=== PATIENT | female | born 1990 | race African-American/Black ===

== ENCOUNTER 2016-06-08 16:27 | Outpatient (CLI) | payer OTHER ==
--- NOTE | 2016-06-08 17:24 | Non Stress Test Report ---
Non Stress Test Datetime Report Generated by CPN: 06/08/2016 17:24 DEMOGRAPHIC EGA NST: 34.4 INDICATION Indication for Study: Ordered by Provider; Other Indication for Study (NST) Other: GDM MONITORING Monitor Explained: Monitor Explained; Test Explained; Patient Verbalized Understanding Time on Monitor: 06/08/2016 16:37 Time off Monitor: 06/08/2016 17:23 NST Duration: 46 NST INTERVENTIONS NST Interventions: PO Hydration Physician Notified NST: Dr. Hunter BABY A: [id number] BABY A Movement : Present Contraction Frequency : 0 FHR Baseline : 135 Accelerations : 15X15 Decelerations : None Variability : Moderate 6-25bpm NST Review: Meets Criteria for Reactive NST NST Review and Verified By : MICHELLE Tilley Results: Reactive NST REPORT Report Trigger: Send Report
== END 2016-06-08 17:27 | disposition home or self-care (01) ==
LOC: LC 16:27
PROVIDERS: ATTEND Obstetrics & Gynecology
PROC: 4A1HXCZ Monitoring of Products of Conception, Cardiac Rate, External Approach (ICD-10-PCS; principal; 2016-06-08)
DX: O24.419 Gestational diabetes mellitus in pregnancy, unspecified control (principal); Z3A.34 34 weeks gestation of pregnancy
CPT/HCPCS: 59025

== ENCOUNTER 2016-07-11 20:16 | Inpatient (IN) | payer OTHER ==
[2016-07-11] MEDS ORDERED: RINGERS SOLUTION,LACTATED 300 ML IV ONE (20:36)
[2016-07-11] MEDS ORDERED: MAG HYDROX/AL HYDROX/SIMETH SUSP 30 ML UDCUP PO PRN (20:36)
[2016-07-11] MEDS ORDERED: ZOLPIDEM TARTRATE 5 MG TABLET PO PRN (20:36)
[2016-07-11] MEDS ORDERED: DINOPROSTONE 10 MG VAGINAL INSERT.SR PV ONE (20:36)
[2016-07-11] MEDS ORDERED: OXYTOCIN/NORMAL SALINE 1,000 ML IV PRN (20:36)
[2016-07-11] MEDS ORDERED: ACETAMINOPHEN 325 MG TABLET PO PRN (20:36)
[2016-07-11 21:04] LABS: ABSOLUTE EOSINOPHILS # (AUTO) 0.1 10^3/uL (0.0-0.6); ABSOLUTE LYMPHOCYTES (AUTO) 2.1 10^3/uL (0.5-4.7); ABSOLUTE MONOCYTES (AUTO) 0.5 10^3/uL (0.1-1.4); ABSOLUTE NEUT (AUTO) 8.2 10^3/uL (1.7-8.2); BASOPHILS % (AUTO) 0.4 % (0-2); EOSINOPHILS % (AUTO) 0.8 % (0-6); HEMATOCRIT 32.4 % (36.0-47.0); HEMOGLOBIN 11.1 g/dL (12.0-15.5); HGB HCT DIFFERENCE 0.9; LYMPHOCYTES % (AUTO) 19.1 % (13-45); MEAN CORPUSCULAR HEMOGLOBIN 30.4 pg (27.0-33.4); MEAN CORPUSCULAR HGB CONC 34.3 g/dL (32.0-36.0); MEAN CORPUSCULAR VOLUME 89 fl (80-97); MONOCYTES % (AUTO) 4.9 % (3-13); RED BLOOD COUNT 3.65 10^6/uL (3.72-5.28); RED CELL DISTRIBUTION WIDTH 12.3 % (11.5-14.0); SEGMENTED NEUTROPHILS % (AUTO) 74.8 % (42-78); WHITE BLOOD COUNT 10.9 10^3/uL (4.0-10.5)
[2016-07-11 21:11] LABS: APPEARANCE,URINE SLIGHTLY-CLOUDY; BILIRUBIN,URINE NEGATIVE (NEGATIVE); GLUCOSE, URINE NEGATIVE (NEGATIVE); KETONES,URINE NEGATIVE (NEGATIVE); LEUKOCYTE ESTERASE,URINE MODERATE (NEGATIVE); NITRITE,URINE NEGATIVE (NEGATIVE); PROTEIN,URINE NEGATIVE (NEGATIVE); URINE SPECIFIC GRAVITY 1.011; UROBILINOGEN,URINE NEGATIVE mg/dL (<2.0)
[2016-07-11] MEDS ORDERED: DINOPROSTONE 10 MG VAGINAL INSERT.SR ONE (21:21)
[2016-07-11 21:46] LABS: URINE BARBITURATES SCREEN NEGATIVE; URINE METHADONE SCREEN NEGATIVE; URINE OPIATES LOW NEGATIVE; URINE PHENCYCLIDINE SCREEN NEGATIVE
--- NOTE | 2016-07-11 22:00 | L&D Flow Sheet ---
LD Flowsheet Datetime Report Generated by CPN: 07/11/2016 22:00 Datetime: 07/11/2016 21:30 Uterine Activity Monitor Mode: External; Palpation (Crystal Rosa, RN) Frequency (min): Irritability (Crystal Rosa, RN) Resting Tone (Palpate): Relaxed (Crystal Rosa, RN) Assessment A Monitor Mode: External US (Crystal [place], RN) FHR Baseline Rate : 130 (Crystal [place], RN) Variability: Moderate 6-25 bpm (Crystal [place], RN) Accelerations: 15X15 (Crystal Frankfort, RN) Decelerations: None (Crystal Frankfort, RN) Patient Position/Activity: Left Lateral (Crystal Frank[place], RN) Datetime: 07/11/2016 21:28 Vaginal Exam Dilatation (cm): 1.0 (Crystal Rosa, RN) Effacement (%): 25 (Crystal Frankfort, RN) Station: -3 (Crystal Rosa, RN) Exam by: Manny Lee RN (Crystal Frankfort, RN) Membrane Status: Intact (Crystal Frankfort, RN) Vaginal Bleeding: None (Crystal Rosa, RN) Cervix, Consistency: Firm (Crystal Frankfort, RN) Cervix, Position: Posterior (Crystal Frankfort, RN) Medications Cervical Ripening Agents: Cervidil (Crystal Rosa, RN) Datetime: 07/11/2016 21:23 I/O Interventions: Up to BR (Crystal Rosa, RN) Datetime: 07/11/2016 21:10 Vital Signs NBP Sys/Azeb/Mean (mmHg): 112 (QS system process) : 57 (QS system process) : 79 (QS system process) Pulse: 80 (QS system process) Datetime: 07/11/2016 21:03 Procedures: Consents Signed (Crystal Rosa, RN) Datetime: 07/11/2016 21:01 Patient Care IV/Blood Work: IV Started; IV Bolus Started (Crystal Frankfort, RN) Patient Care Comments: 18 G right HAnd (Crystal Frankfort, RN) Datetime: 07/11/2016 20:55 Uterine Activity Monitor Mode: External; Palpation (Crystal Rosa, RN) Frequency (min): 1 (Crystal Frankfort, RN) Quality: Mild (Crystal Frank[place], RN) Duration (sec): 90 (Crystal Rosa, RN) Resting Tone (Palpate): Relaxed (Crystal Frankfort, RN) Assessment A Monitor Mode: External US (Crystal Frank[place], RN) FHR Baseline Rate : 135 (Crystal Frankfort, RN) Variability: Moderate 6-25 bpm (Crystal Frankfort, RN) Accelerations: 15X15 (Crystal Rosa, RN) Decelerations: None (Crystal Frankfort, RN) Patient Position/Activity: Right Tilt (Crystal Frankfort, RN) I/O Interventions: Clear Liquids Given (Crystal Frankfort, RN) Datetime: 07/11/2016 20:24 Vaginal Bleeding: None (Crystal Frankfort, RN) Maternal Assessment Level of Consciousness: Fully Conscious (Crystal Frankfort, RN) DTR's/Clonus: DTRs 2+ (Crystal Frankfort, RN) Headache: Denies (Crystal Frankfort, RN) Breath Sounds, Left: Clear and Equal (Crystal Rosa, RN) Breath Sounds, Right: Clear and Equal (Crystal Rosa, RN) Nausea/Vomiting: Denies (Crystal Rosa, RN) RUQ Epigastric Pain: Denies (Crystal Frankfort, RN) Teaching Instructional Method: Verbal; Patient Instructed; Family/Support Person Instructed; Verbalized Understanding (Isamar Lee RN) Plan of Care: Plan of Care Discussed; Induction (Isamar Lee RN)
[2016-07-11] MEDS: RINGERS SOLUTION,LACTATED 1,000 ML IV PRN (23:33)
[2016-07-12] MEDS: RINGERS SOLUTION,LACTATED 1,000 ML IV PRN ×3 (02:06→19:13)
--- NOTE | 2016-07-12 08:01 | L&D Flow Sheet ---
LD Flowsheet Datetime Report Generated by CPN: 07/12/2016 08:00 Datetime: 07/12/2016 07:44 Monitor Interventions for UA: [place] Adjusted (Dylan Kari, RN) Datetime: 07/12/2016 07:42 Monitor Interventions for FHR: Ultrasound Adjusted (Dylan Kari, RN) Comments: picking up maternal hr (Dylan Kari, RN) Datetime: 07/12/2016 07:33 NBP Sys/Azeb/Mean (mmHg): 109 (QS system process) : 59 (QS system process) : 78 (QS system process) Pulse: 67 (QS system process) Provider Reviewed Strip: Yes (Dylan Pierce RN) Strip Reviewed by: Dr Hunter (Dylan Pierce RN) Provider Notified (Name): Dr Hunter (Dylan Pierce RN) Notification Reason: Status Update; Labor Status (Dylan Pierce RN) LaborFlag: Antepartum (QS system process) Datetime: 07/12/2016 07:30 Monitor Mode: External; Palpation (Dylan Pierce RN) Frequency (min): 5-10 (Dylan Pierce RN) Quality: Mild (Dylan Pierce RN) Duration (sec): 90-110 (Dylan Pierce RN) Resting Tone (Palpate): Relaxed (Dylan Pierce RN) Monitor Mode: External US (Dylan Pierce RN) FHR Baseline Rate : 130 (Dylan Pierce RN) Variability: Moderate 6-25 bpm (Dylan Kari, RN) Accelerations: 15X15 (Dylan Kari, RN) Decelerations: None (Dylan Kari, RN) Comments: Broken tracing/ RN adjusting (Dylan Kari, RN) Communication: RN at Bedside; RN Reviewed Strip (Dylan Kari, RN) Datetime: 07/12/2016 07:25 Level of Consciousness: Fully Conscious (Dylna Kari, RN) DTR's/Clonus: DTRs 1+; No Clonus (Dylan Kari, RN) Headache: Denies (Dylan Kari, RN) Breath Sounds, Left: Clear and Equal (Dylan Kari, RN) Breath Sounds, Right: Clear and Equal (Dylan Kari, RN) Nausea/Vomiting: Denies (Dylan Kari, RN) RUQ Epigastric Pain: Denies (Dylan Kari, RN) Datetime: 07/12/2016 07:16 Comments: intermittently picking up maternal hr (Dylan Kari, RN) Datetime: 07/12/2016 07:15 Stage of : Antepartum (Isamar Lee RN) Patient Position/Activity: Left Lateral (Dylan Pierce RN) Strip Reviewed by: Manny Lee RN (Isamar Lee RN) Communication: Report Given to @ Leonard Pierce RN (Isamar Lee RN) Notification Reason: Status Update (Isamar Lee RN) Datetime: 07/12/2016 07:08 Monitor Interventions for FHR: Ultrasound Adjusted (Dylan Pierce, MICHELLE) Pain Coping: Sleeping (Dylan Pierce RN) Communication: RN at Bedside (Dylan Pierce RN) Datetime: 07/12/2016 07:00 Monitor Mode: External; Palpation (Crystal [place], RN) Frequency (min): 6 (Crystal Rosa, RN) Quality: Mild (Crystal Rosa, RN) Duration (sec): 90-100 (Crystal Rosa, RN) Resting Tone (Palpate): Relaxed (Crystal [place], RN) Monitor Mode: External US (Crystal Rosa, RN) FHR Baseline Rate : 130 (Crystal [place], RN) Variability: Moderate 6-25 bpm (Crystal [place], RN) Accelerations: 15X15 (Crystal Rosa, RN) Patient Position/Activity: Left Extreme (Crystal [place], RN) Datetime: 07/12/2016 06:30 Monitor Mode: External; Palpation (Crystal [place], RN) Frequency (min): 7-11 (Crystal [place], RN) Quality: Mild (Crystal Rosa, RN) Duration (sec): 90-110 (Crystal [place], RN) Resting Tone (Palpate): Relaxed (Crystal [place], RN) Monitor Mode: External US (Crystal [place], RN) FHR Baseline Rate : 130 (Crystal [place], RN) Variability: Moderate 6-25 bpm (Crystal Rosa, RN) Accelerations: 15X15 (Crystal [place], RN) Datetime: 07/12/2016 06:00 Monitor Mode: External (Crystal [place], RN) Frequency (min): 10 (Crystal Rosa, RN) Quality: Mild (Crystal [place], RN) Duration (sec): 90 (Crystal Rosa, RN) Resting Tone (Palpate): Relaxed (Crystal Rosa, RN) Monitor Mode: External US (Crystal Rosa, RN) FHR Baseline Rate : 130 (Crystal Rosa, RN) Variability: Moderate 6-25 bpm (Crystal [place], RN) Accelerations: 15X15 (Crystal [place], RN) Datetime: 07/12/2016 05:33 NBP Sys/Azeb/Mean (mmHg): 109 (QS system process) : 56 (QS system process) : 75 (QS system process) Pulse: 64 (QS system process) LaborFlag: Antepartum (QS system process) Datetime: 07/12/2016 05:30 Monitor Mode: External; Palpation (Crystal [place], RN) Frequency (min): 11 (Crystal [place], RN) Quality: Mild (Crystal Rosa, RN) Duration (sec): 120 (Crystal [place], RN) Resting Tone (Palpate): Relaxed (Crystal Rosa, RN) Monitor Mode: External US (Crystal Rosa, RN) FHR Baseline Rate : 130 (Crystal Rosa, RN) Variability: Moderate 6-25 bpm (Crystal [place], RN) Accelerations: 15X15 (Crystal Rosa, RN) Patient Position/Activity: Left Lateral (Crystal [place], RN) Datetime: 07/12/2016 05:00 Monitor Mode: External; Palpation (Crystal Rosa, RN) Frequency (min): 0 (Crystal Rosa, RN) Resting Tone (Palpate): Relaxed (Crystal Rosa, RN) Monitor Mode: External US (Crystal [place], RN) FHR Baseline Rate : 135 (Crystal Rosa, RN) Variability: Moderate 6-25 bpm (Crystal Rosa, RN) Accelerations: 15X15 (Crystal [place], RN) Patient Position/Activity: Left Lateral (Crystal [place], RN) Datetime: 07/12/2016 04:30 Monitor Mode: External; Palpation (Crystal [place], RN) Frequency (min): 0 (Crystal Rosa, RN) Resting Tone (Palpate): Relaxed (Crystal Rosa, RN) Monitor Mode: External US (Crystal Rosa, RN) FHR Baseline Rate : 130 (Crystal [place], RN) Variability: Moderate 6-25 bpm (Crystal Rosa, RN) Accelerations: 15X15 (Crystal Rosa, RN) Patient Position/Activity: Left Lateral; Semi-Fowlers (Crystal Rosa, RN) Datetime: 07/12/2016 04:06 I/O Interventions: Up to BR (Crystal Rosa, RN) Datetime: 07/12/2016 04:00 Monitor Mode: External; Palpation (Crystal [place], RN) Frequency (min): 0 (Crystal Rosa, RN) Resting Tone (Palpate): Relaxed (Crystal Rosa, RN) Monitor Mode: External US (Crystal Rosa, RN) FHR Baseline Rate : 130 (Crystal Rosa, RN) Variability: Moderate 6-25 bpm (Crystal Rosa, RN) Accelerations: 10X10 (Crystal [place], RN) Datetime: 07/12/2016 03:30 Monitor Mode: External; Palpation (Crystal [place], RN) Frequency (min): 0 (Crystal [place], RN) Resting Tone (Palpate): Relaxed (Crystal [place], RN) Monitor Mode: External US (Crystal Rosa, RN) FHR Baseline Rate : 130 (Crystal [place], RN) Variability: Moderate 6-25 bpm (Crystal Rosa, RN) Accelerations: 15X15 (Crystal [place], RN) Decelerations: None (Crystal [place], RN) Patient Position/Activity: Left Lateral (Crystal [place], RN) Datetime: 07/12/2016 03:00 Monitor Mode: External; Palpation (Crystal [place], RN) Frequency (min): 0 (Crystal [place], RN) Resting Tone (Palpate): Relaxed (Crystal [place], RN) Monitor Mode: External US (Crystal Rosa, RN) FHR Baseline Rate : 135 (Crystal Rosa, RN) Variability: Moderate 6-25 bpm (Crystal [place], RN) Patient Position/Activity: Left Lateral; Semi-Fowlers (Crystal Rosa, RN) Datetime: 07/12/2016 02:30 Monitor Mode: External; Palpation (Crystal [place], RN) Frequency (min): 0 (Crystal Rosa, RN) Resting Tone (Palpate): Relaxed (Crystal [place], RN) Monitor Mode: External US (Crystal [place], RN) FHR Baseline Rate : 130 (Crystal [place], RN) Variability: Moderate 6-25 bpm (Crystal Rosa, RN) Accelerations: 15X15 (Crystal Rosa, RN) Patient Position/Activity: Left Lateral; Semi-Fowlers (Crystal [place], RN) Datetime: 07/12/2016 02:06 IV/Blood Work: New IV Bag Hung (Crystal [place], RN) Datetime: 07/12/2016 02:00 Monitor Mode: External; Palpation (Crystal [place], RN) Frequency (min): 0 (Crystal Rosa, RN) Resting Tone (Palpate): Relaxed (Crystal [place], RN) Monitor Mode: External US (Crystal Rosa, RN) FHR Baseline Rate : 140 (Crystal Rosa, RN) Variability: Moderate 6-25 bpm (Crystal [place], RN) Accelerations: 15X15 (Crystal Rosa, RN) Patient Position/Activity: Left Lateral; Semi-Fowlers (Crystal [place], RN) Datetime: 07/12/2016 01:30 Monitor Mode: External; Palpation (Crystal [place], RN) Frequency (min): 0 (Crystal [place], RN) Resting Tone (Palpate): Relaxed (Crystal Rosa, RN) Monitor Mode: External US (Crystal [place], RN) FHR Baseline Rate : 130 (Crystal Rosa, RN) Variability: Moderate 6-25 bpm (Crystal Rosa, RN) Accelerations: 15X15 (Crystal Rosa, RN) Decelerations: None (Crystal [place], RN) Patient Position/Activity: Left Lateral; Semi-Fowlers (Crystal [place], RN) Datetime: 07/12/2016 01:00 Monitor Mode: External; Palpation (Crystal Rosa, RN) Frequency (min): 0 (Crystal Rosa, RN) Resting Tone (Palpate): Relaxed (Crystal [place], RN) Monitor Mode: External US (Crystal [place], RN) FHR Baseline Rate : 125 (Crystal Rosa, RN) Variability: Moderate 6-25 bpm (Crystal [place], RN) Accelerations: 15X15 (Crystal [place], RN) Decelerations: None (Crystal [place], RN) Patient Position/Activity: Left Lateral; Semi-Fowlers (Crystal Rosa, RN) Datetime: 07/12/2016 00:30 Monitor Mode: External; Palpation (Crystal Rosa, RN) Frequency (min): 0 (Crystal [place], RN) Resting Tone (Palpate): Relaxed (Crystal Rosa, RN) Monitor Mode: External US (Crystal Rosa, RN) FHR Baseline Rate : 120 (Crystal Rosa, RN) Variability: Moderate 6-25 bpm (Crystal [place], RN) Accelerations: 15X15 (Crystal [place], RN) Decelerations: None (Crystal Rosa, RN) Patient Position/Activity: Left Lateral; Semi-Fowlers (Crystal Rosa, RN) Datetime: 07/12/2016 00:00 Monitor Mode: External; Palpation (Crystal Rosa, RN) Frequency (min): 0 (Crystal Rosa, RN) Resting Tone (Palpate): Relaxed (Crystal [place], RN) Monitor Mode: External US (Crystal Rosa, RN) FHR Baseline Rate : 125 (Crystal Rosa, RN) Decelerations: None (Crystal Rosa, RN) Patient Position/Activity: Left Tilt (Crystal [place], RN) Datetime: 07/11/2016 23:38 I/O Interventions: Up to BR (Crystal Rosa, RN) Datetime: 07/11/2016 23:34 NBP Sys/Azeb/Mean (mmHg): 125 (QS system process) : 73 (QS system process) : 94 (QS system process) Pulse: 81 (QS system process) LaborFlag: Antepartum (QS system process) Datetime: 07/11/2016 23:29 Monitor Mode: External; Palpation (Crystal Rosa, RN) Frequency (min): Irritability (Crystal Rosa, RN) Resting Tone (Palpate): Relaxed (Crystal [place], RN) Monitor Mode: External US (Crystal Rosa, RN) FHR Baseline Rate : 120 (Crystal Rosa, RN) Variability: Moderate 6-25 bpm (Crystal Rosa, RN) Accelerations: 15X15 (Crystal [place], RN) Decelerations: None (Crystal Rosa, RN) Patient Position/Activity: Left Lateral (Crystal Rosa, RN) Datetime: 07/11/2016 23:02 Bedside Blood Glucose: 91 (Crystal Rosa, RN) LaborFlag: Antepartum (QS system process) Datetime: 07/11/2016 23:00 Monitor Mode: External; Palpation (Crystal Rosa, RN) Frequency (min): 0 (Crystal Rosa, RN) Resting Tone (Palpate): Relaxed (Crystal [place], RN) Monitor Mode: External US (Crystal [place], RN) FHR Baseline Rate : 145 (Crystal Rosa, RN) Variability: Moderate 6-25 bpm (Crystal Rosa, RN) Decelerations: None (Crystal Rosa, RN) Patient Position/Activity: Left Lateral (Crystal [place], RN) Datetime: 07/11/2016 22:59 Bedside Blood Glucose: 91 (QS system process) LaborFlag: Antepartum (QS system process) Datetime: 07/11/2016 22:50 Temperature (F): 98.1 (Crystal [place], RN) Temperature (C): 36.7 (QS system process) LaborFlag: Antepartum (QS system process) Datetime: 07/11/2016 22:42 Stage of : Antepartum (Isamar Lee RN) Strip Reviewed by: Manny Lee RN (Isamar Lee RN) Communication: Provider Orders Received; Call/Page Placed to Provider (Isamar Lee RN) Provider Notified (Name): Umer (Isamar Lee RN) Notification Reason: Status Update; Lab/Diagnostic Study (Isaamr Lee RN) Communication Comments: Reported pt GDM status, received orders to check blood sugar x1 this shift. (Isamar Lee RN) Datetime: 07/11/2016 22:29 Frequency (min): 0 (Isamar Lee RN) Resting Tone (Palpate): Relaxed (Isamar Lee RN) Monitor Mode: External US (Isamar Lee RN) FHR Baseline Rate : 150 (Isamar Lee RN) Variability: Moderate 6-25 bpm (Isamar Lee RN) Accelerations: 15X15 (Isamar Lee RN) Decelerations: None (Isamar Lee RN) Pain Presence: None/Denies (Isamar Lee RN) Patient Position/Activity: Left Lateral (Isamar Lee RN) Comfort Measures: Family Support (Isamar Lee RN)
--- NOTE | 2016-07-12 10:00 | L&D Flow Sheet ---
LD Flowsheet Datetime Report Generated by CPN: 07/12/2016 10:00 Datetime: 07/12/2016 09:24 Monitor Mode: External; Palpation (Dylan Pierce RN) Frequency (min): irregular (Dylan Pierce RN) Quality: Mild (Dylan Pierce RN) Resting Tone (Palpate): Relaxed (Dylan Pierce RN) Monitor Mode: External US (Dylan Pierce RN) FHR Baseline Rate : 130 (Dylan Pierce RN) Variability: Moderate 6-25 bpm (Dylan Pierce RN) Accelerations: 15X15 (Dylan Pierce RN) Decelerations: None (Dylan Pierce RN) Comments: Pt removed from monitors for shower and breakfast per Dr Hunter order. (Dylan Pierce RN) Pain Presence: None/Denies (Dylan Pierce RN) Medication Comments: Cervidil removed (Dylan Pierce RN) IV/Blood Work: IV Saline Locked (Dylan Pierce RN) Patient Care Comments: IV covered for shower. (Dylan Pierce RN) Communication: RN at Bedside; RN Reviewed Strip (Dylan Pierce RN) LaborFlag: Antepartum (QS system process) Datetime: 07/12/2016 09:00 Respirations: 16 (Dylan Pierce RN) Monitor Mode: External; Palpation (Dylan Pierce RN) Frequency (min): irregular (Dylan Pierce RN) Quality: Mild (Dylan Pierce RN) Resting Tone (Palpate): Relaxed (Dylan Pierce RN) Monitor Mode: External US (Dylan Pierce RN) FHR Baseline Rate : 130 (Dylan Pierce RN) Variability: Moderate 6-25 bpm (Dylan Pierce RN) Accelerations: 15X15 (Dylan Pierce RN) Decelerations: None (Dylan Pierce RN) Level of Consciousness: Fully Conscious (Dylan Pierce RN) Headache: Denies (Dylan Pierce RN) Nausea/Vomiting: Denies (Dylan Pierce RN) RUQ Epigastric Pain: Denies (Dylan Pierce RN) Communication: RN at Bedside; RN Reviewed Strip (Dylan Pierce RN) LaborFlag: Antepartum (QS system process) Datetime: 07/12/2016 08:30 Respirations: 16 (Dylan Rioseet, RN) Monitor Mode: External; Palpation (Dylan Rioseet, RN) Frequency (min): irregular (Dylan Kari, RN) Quality: Mild (Dylna Kari, RN) Resting Tone (Palpate): Relaxed (Dylan Kari, RN) Monitor Mode: External US (Dylan Pierce RN) FHR Baseline Rate : 130 (Dylan Pierce, RN) Variability: Moderate 6-25 bpm (Dylan Rioseet, RN) Accelerations: 15X15 (Dylan [place]az[place], RN) Decelerations: None (Dylan Pierce RN) Pain Coping: Sleeping (Dylan Pierce RN) Communication: RN at Bedside; RN Reviewed Strip (Dylan Pierce RN) LaborFlag: Antepartum (QS system process) Datetime: 07/12/2016 08:00 Respirations: 16 (Dylan Kari, RN) Monitor Mode: External; Palpation (Dylan Kari, RN) Frequency (min): irregular (Dylan Kari, RN) Quality: Mild (Dylan Kari, RN) Resting Tone (Palpate): Relaxed (Dylan Kari, RN) Monitor Mode: External US (Dylan Pierce RN) FHR Baseline Rate : 130 (Dylan Pierce RN) Variability: Moderate 6-25 bpm (Dylan Pierce RN) Accelerations: 15X15 (Dylan Pierce RN) Decelerations: None (Dylan Pierce RN) Pain Coping: Sleeping (Dylan Pierce RN) Communication: RN at Bedside; RN Reviewed Strip (Dylan Pierce RN) LaborFlag: Antepartum (QS system process)
[2016-07-12] MEDS ORDERED: MISOPROSTOL 0.1 MG TABLET ONE ×2 (10:20→15:02)
[2016-07-12] MEDS ORDERED: MISOPROSTOL 0.1 MG TABLET PO ONE (10:29)
--- NOTE | 2016-07-12 12:00 | L&D Flow Sheet ---
LD Flowsheet Datetime Report Generated by CPN: 07/12/2016 12:00 Datetime: 07/12/2016 11:51 NBP Sys/Azeb/Mean (mmHg): 115 (QS system process) : 57 (QS system process) : 79 (QS system process) Pulse: 70 (QS system process) LaborFlag: Antepartum (QS system process) Datetime: 07/12/2016 11:30 Respirations: 16 (Dylan [place]az[place], RN) Monitor Mode: External; Palpation (Dylan Pierce RN) Frequency (min): irregular (Dylan Pierce RN) Resting Tone (Palpate): Relaxed (Dylan Pierce RN) Monitor Mode: External US (Dylan Pierce RN) FHR Baseline Rate : 140 (Dylan Pierce RN) Variability: Moderate 6-25 bpm (Dylan Pierce RN) Accelerations: 15X15 (Dylan Pierce RN) Decelerations: None (Dylan Pierce RN) Pain Presence: None/Denies (Dylan Pierce RN) Communication: RN at Bedside; RN Reviewed Strip (Dylan Pierce RN) LaborFlag: Antepartum (QS system process) Datetime: 07/12/2016 11:21 NBP Sys/Azeb/Mean (mmHg): 120 (QS system process) : 59 (QS system process) : 84 (QS system process) Pulse: 69 (QS system process) LaborFlag: Antepartum (QS system process) Datetime: 07/12/2016 11:00 Monitor Mode: External; Palpation (Dylan Pierce, RN) Frequency (min): irregular (Dylan Rioseet, RN) Resting Tone (Palpate): Relaxed (Dylan [place]az[place], RN) Monitor Mode: External US (Dylan [place]azot, RN) FHR Baseline Rate : 135 (Dylan [place], RN) Variability: Moderate 6-25 bpm (Dylan Kari, RN) Accelerations: 15X15 (Dylan Kari, RN) Decelerations: None (Dylan Pierce, RN) Communication: RN at Bedside; RN Reviewed Strip (Dylan Pierce, RN) Datetime: 07/12/2016 10:51 NBP Sys/Azeb/Mean (mmHg): 125 (QS system process) : 59 (QS system process) : 85 (QS system process) Pulse: 75 (QS system process) Cervical Ripening Agents: Cytotec @ 50mcg PO (Dylan Pierce RN) Medication Comments: IV LR 125ml/hr (Dylan Pierce RN) LaborFlag: Antepartum (QS system process) Datetime: 07/12/2016 10:35 Monitor Interventions for UA: [place] Adjusted (Dylan Pierce RN) Datetime: 07/12/2016 10:25 Dilatation (cm): 1.0 (Dylan Pierce RN) Effacement (%): 25 (Dylan Pierce RN) Station: -3 (Dylan Pierce RN) Exam by: Haritha Pierce RN (Dylan Pierce RN) Dilatation (cm): 1-2 cm (Dylan Pierce RN) Effacement: 0-30_ effaced (Dylan Pierce RN) Station: minus 3 (Dylan Pierce RN) Consistency: Firm (Dylan Pierce RN) Position: Posterior (Dylan Pierce RN) Total Johns's Score: 1 (QS system process) : 0-4 = Unfavorable cervix (QS system process) Communication: Dr Hunter notified of pt's ve; orders for cytotec 50mcg PO now. (Dylan Pierce RN)
--- NOTE | 2016-07-12 14:00 | L&D Flow Sheet ---
LD Flowsheet Datetime Report Generated by CPN: 07/12/2016 14:00 Datetime: 07/12/2016 13:51 NBP Sys/Azeb/Mean (mmHg): 106 (QS system process) : 58 (QS system process) : 76 (QS system process) Pulse: 70 (QS system process) LaborFlag: Antepartum (QS system process) Datetime: 07/12/2016 13:30 Monitor Mode: External; Palpation (Dylan Pierce, RN) Frequency (min): irregular (Dylan Pierce RN) Quality: Mild (Dylan Pierce RN) Resting Tone (Palpate): Relaxed (Dylan Pierce RN) Monitor Mode: External US (Dylan Pierce RN) FHR Baseline Rate : 140 (Dylan Pierce RN) Variability: Moderate 6-25 bpm (Dylan Pierce RN) Accelerations: Prolonged (Dylan Pierce RN) Decelerations: None (Dylan Pierce RN) Pain Scale: 1 (Dylan Pierce RN) Pain Type: Cramping (Dylan iPerce RN) Pain Coping: Declines Medication or Epidural (Dylan Pierce RN) Communication: RN at Bedside; RN Reviewed Strip (Dylan Pierce RN) LaborFlag: Antepartum (QS system process) Datetime: 07/12/2016 13:21 NBP Sys/Azeb/Mean (mmHg): 110 (QS system process) : 55 (QS system process) : 79 (QS system process) Pulse: 74 (QS system process) LaborFlag: Antepartum (QS system process) Datetime: 07/12/2016 13:06 Monitor Interventions for FHR: Ultrasound Adjusted (Dylan Kari, RN) Datetime: 07/12/2016 13:05 Monitor Interventions for UA: [place] Adjusted (Dylan Kari, RN) Patient Position/Activity: Right Lateral (Dylan Kari, RN) Datetime: 07/12/2016 13:02 Monitor Interventions for FHR: Ultrasound Adjusted (Dylan Kari, RN) Datetime: 07/12/2016 13:00 Monitor Mode: External; Palpation (Dylan Kari, RN) Frequency (min): 1-4 (Dylan Kari, RN) Quality: Mild (Dylan Kari, RN) Duration (sec): 80-100 (Dylan Kari, RN) Resting Tone (Palpate): Relaxed (Dylan Kari, RN) Contraction Comments: coupling noted (Dylan Kari, RN) Contraction Comments: picking up ctx upside down (Dylan Kari, RN) Monitor Mode: External US (Dylan Kari, RN) FHR Baseline Rate : 135 (Dylan Kari, RN) Variability: Moderate 6-25 bpm (Dylan Kari, RN) Accelerations: 15X15 (Dylan Kari, RN) Decelerations: None (Dylan Kari, RN) Datetime: 07/12/2016 12:30 Respirations: 18 (Dylan Kari, RN) Temperature (F): 98.7 (Dylan Kari, RN) Temperature (C): 37.1 (QS system process) Monitor Mode: External; Palpation (Dylan Kari, RN) Frequency (min): irregular with uterine irritability noted (Dylan Kari, RN) Quality: Mild (Dylan Kari, RN) Resting Tone (Palpate): Relaxed (Dylan Kari, RN) Monitor Mode: External US (Dylan Kari, RN) FHR Baseline Rate : 135 (Dylan Kari, RN) Variability: Moderate 6-25 bpm (Dylan Pierce RN) Accelerations: 15X15 (Dylan Pierce RN) Decelerations: None (Dylan Pierce RN) Communication: RN at Bedside; RN Reviewed Strip (Dylan Pierce RN) LaborFlag: Antepartum (QS system process) Datetime: 07/12/2016 12:24 NBP Sys/Azeb/Mean (mmHg): 134 (QS system process) : 64 (QS system process) : 92 (QS system process) Pulse: 63 (QS system process) LaborFlag: Antepartum (QS system process) Datetime: 07/12/2016 12:18 Patient Care Comments: Juice given (Dylan Pierce RN) Datetime: 07/12/2016 12:16 Monitor Interventions for UA: [place] Adjusted (Dylan Kari, RN) Datetime: 07/12/2016 12:12 Monitor Interventions for FHR: Ultrasound Adjusted (Dylan Kari, RN) Communication: RN at Bedside (Dylan Kari, RN) Datetime: 07/12/2016 12:00 Monitor Mode: External; Palpation (Dylan Kari, RN) Frequency (min): none noted (Dylan Kari, RN) Resting Tone (Palpate): Relaxed (Dylan Kari, RN) Monitor Mode: External US (Dylan Kari, RN) FHR Baseline Rate : 140 (Dylan Kari, RN) Variability: Moderate 6-25 bpm (Dylan Kari, RN) Accelerations: 15X15 (Dylan Pierce RN) Decelerations: None (Dylan Pierce RN) Pain Presence: None/Denies (Dylan Pierce RN) Pain Assessment Comments: pt resting, watching tv, family at bedside, no distress noted. (Dylan Pierce RN) Communication: RN at Bedside; RN Reviewed Strip (Dylan Pierce RN) LaborFlag: Antepartum (QS system process)
[2016-07-12] MEDS ORDERED: MISOPROSTOL 0.1 MG TABLET PV ONE (14:59)
--- NOTE | 2016-07-12 16:01 | L&D Flow Sheet ---
LD Flowsheet Datetime Report Generated by CPN: 07/12/2016 16:00 Datetime: 07/12/2016 15:52 NBP Sys/Azeb/Mean (mmHg): 142 (QS system process) : 63 (QS system process) : 91 (QS system process) Pulse: 65 (QS system process) LaborFlag: Antepartum (QS system process) Datetime: 07/12/2016 15:30 Respirations: 16 (Dylan Lazot, RN) Monitor Mode: External; Palpation (Dylan Pierce RN) Frequency (min): 2-4 (Dylan Pierce RN) Quality: Mild (Dylan Pierce RN) Duration (sec): 60-80 (Dylan Pierce RN) Resting Tone (Palpate): Relaxed (Dylan Pierce RN) Monitor Mode: External US (Dylan Pierce RN) FHR Baseline Rate : 140 (Dylan Pierce RN) Variability: Moderate 6-25 bpm (Dylan Pierce RN) Accelerations: 15X15 (Dylan Pierce RN) Decelerations: None (Dylan Pierce RN) Pain Scale: 3 (Dylan Pierce RN) Pain Presence: Intermittent (Dylan Pierce RN) Pain Type: Cramping (Dylan Pierce RN) Pain Location: Abdomen (Dylan Pierce RN) Pain Relief Measures: Comfort Measures (Dylan Pierce RN) Pain Coping: Talking Through Contractions; Declines Medication or Epidural (Dylan Pierce RN) Comfort Measures: Breathing/Relaxation (Dylan Pierce RN) Communication: RN at Bedside; RN Reviewed Strip (Dylan Pierce RN) LaborFlag: Antepartum (QS system process) Datetime: 07/12/2016 15:23 NBP Sys/Azeb/Mean (mmHg): 135 (QS system process) : 68 (QS system process) : 93 (QS system process) Pulse: 67 (QS system process) LaborFlag: Antepartum (QS system process) Datetime: 07/12/2016 15:07 Cervical Ripening Agents: Cytotec @ 25mcg (Dylan Pierce RN) Medication Comments: PV (Dylan Pierce RN) IV/Blood Work: New IV Bag Hung (Dylan Pierce RN) Patient Care Comments: LR 125ml/hr (Dylan Pierce RN) Datetime: 07/12/2016 15:00 Respirations: 16 (Dylan Pierce RN) Monitor Mode: External; Palpation (Dylan Pierce RN) Frequency (min): irregular (Dylan Pierce RN) Quality: Mild (Dylan Pierce RN) Resting Tone (Palpate): Relaxed (Dylan Pierce RN) Monitor Mode: External US (Dylan Pierce RN) FHR Baseline Rate : 140 (Dylan Pierce RN) Variability: Moderate 6-25 bpm (Dylan Pierce RN) Accelerations: 15X15 (Dylan Pierce RN) Decelerations: None (Dylan Pierce RN) Pain Scale: 3 (Dylan Pierce RN) Pain Type: Cramping (Dylan Pierce RN) Pain Relief Measures: Comfort Measures (Dylan Pierce RN) Pain Coping: Declines Medication or Epidural (Dylan Pierce RN) Comfort Measures: Breathing/Relaxation (Dylan Pierce RN) Communication: RN at Bedside; RN Reviewed Strip (Dylan Pierce RN) LaborFlag: Antepartum (QS system process) Datetime: 07/12/2016 14:58 Notification Reason: Status Update (Dylan Pierce RN) Communication Comments: Dr Hunter reviewed strip; notified of ve; pain 3/5 declines pain meds. Orders recieved for cytotec 25mcg PV now. (Dylan Pierce RN) Datetime: 07/12/2016 14:54 Monitor Interventions for UA: [place] Adjusted (Dylan Pierce RN) Dilatation (cm): 1.5 (Dylan Pierce RN) Effacement (%): 50 (Dylan Pierce RN) Station: -3 (Dylan Pierce, RN) Exam by: Haritha Pierce RN (Dylan Pierce RN) Vaginal Bleeding: None (Dylan Pierce RN) Cervix, Consistency: Soft (Dylan Pierce, RN) Cervix, Position: Posterior (Dylan Pierce, RN) Dilatation (cm): 1-2 cm (Dylan Pierce, RN) Effacement: 40-50_ effaced (Dylan Pierce RN) Station: minus 3 (Dylan Pierce, RN) Consistency: Soft (Dylan Pierce, RN) Position: Posterior (Dylan Pierce, RN) Total Johns's Score: 4 (QS system process) : 0-4 = Unfavorable cervix (QS system process) Datetime: 07/12/2016 14:48 I/O Interventions: Up to BR (Dylan Pierce RN) Datetime: 07/12/2016 14:30 Monitor Mode: External; Palpation (Dylan Kari, RN) Frequency (min): 3-5 (Dylan Pierce RN) Quality: Mild (Dylan Pierce RN) Duration (sec): 70-90 (Dylan Pierce RN) Duration Criteria: Less than Two 120 Second Contractions (Dylan Pierce RN) Pattern: Normal: <= 5 Contractions in 10 Minutes (Dylan Pierce RN) Resting Tone (Palpate): Relaxed (Dylan Pierce RN) Contraction Comments: picking up ctx upside down (Dylan Pierce RN) Monitor Mode: External US (Dylan Pierce RN) FHR Baseline Rate : 140 (Dylan Pierce RN) Variability: Moderate 6-25 bpm (Dylan Pierce RN) Accelerations: Prolonged (Dylan Pierce RN) Decelerations: None (Dylan Pierce RN) Communication: RN at Bedside; RN Reviewed Strip (Dylan Pierce RN) Datetime: 07/12/2016 14:22 NBP Sys/Azeb/Mean (mmHg): 128 (QS system process) : 62 (QS system process) : 89 (QS system process) Pulse: 63 (QS system process) LaborFlag: Antepartum (QS system process) Datetime: 07/12/2016 14:00 Respirations: 16 (Dylan Pierce RN) Monitor Mode: External; Palpation (Dylan Pierce RN) Frequency (min): 2-4 (Dylan Pierce RN) Quality: Mild (Dylan Pierce RN) Duration (sec): 80-100 (Dylan Pierce, MICHELLE) Duration Criteria: Less than Two 120 Second Contractions (Dylan Pierce RN) Pattern: Normal: <= 5 Contractions in 10 Minutes (Dylan Pierce RN) Resting Tone (Palpate): Relaxed (Dylan Pierce RN) Monitor Mode: External US (Dylan Pierce RN) FHR Baseline Rate : 140 (Dylan Pierce RN) Variability: Moderate 6-25 bpm (Dylan Pierce RN) Accelerations: Prolonged (Dylan Pierce RN) Decelerations: None (Dylan Pierce RN) Pain Scale: 1 (Dylan Pierce RN) Pain Presence: Intermittent (Dylan Pierce RN) Pain Type: Cramping (Dylan Pierce RN) Pain Location: Abdomen (Dylan Pierce RN) Level of Consciousness: Fully Conscious (Dylan Pierce RN) Headache: Denies (Dylan Pierce RN) Nausea/Vomiting: Denies (Dylan Pierce RN) RUQ Epigastric Pain: Denies (Dylan Pierce RN) Communication: RN at Bedside; RN Reviewed Strip (Dylan Pierce RN) LaborFlag: Antepartum (QS system process)
[2016-07-12] MEDS ORDERED: PENICILLIN G POTASSIUM 5,000,000 UNIT in DEXTROSE 5%-WATER 100 ML IV ONE (16:20)
[2016-07-12] MEDS ORDERED: MISOPROSTOL 0.2 MG TABLET ONE (16:22)
[2016-07-12] MEDS ORDERED: BUPIVACAINE HCL 0.25 % INJ/PF (2.5 MG/1 ML) 30 ML VIAL ONE (16:23)
[2016-07-12] MEDS ORDERED: EPHEDRINE SULFATE INJ 50 MG/1 ML AMPULE ONE (16:23)
[2016-07-12] MEDS ORDERED: FENTANYL/BUPIVACAINE/NS/PF 200 MCG/100 ML RTUINJ EPI ONE (16:23)
[2016-07-12] MEDS ORDERED: OXYTOCIN/NORMAL SALINE 20 UNIT/1,000 ML RTUINJ ONE (16:23)
[2016-07-12] MEDS ORDERED: LIDOCAINE 1% INJ-PF (10 MG/ML) 30 ML SDV ONE (16:23)
[2016-07-12] MEDS ORDERED: PENICILLIN G-K 5 MILLION UNIT VIAL ONE ×2 (16:23→19:23)
--- NOTE | 2016-07-12 18:01 | L&D Flow Sheet ---
LD Flowsheet Datetime Report Generated by CPN: 07/12/2016 18:00 Datetime: 07/12/2016 17:51 NBP Sys/Azeb/Mean (mmHg): 119 (QS system process) : 65 (QS system process) : 83 (QS system process) Pulse: 79 (QS system process) LaborFlag: Antepartum (QS system process) Datetime: 07/12/2016 17:45 Monitor Mode: External; Palpation (Dylan Pierce RN) Frequency (min): 2-4 (Dylan Pierce RN) Quality: Moderate (Dylan Pierce RN) Duration (sec): 60-90 (Dylan Pierce RN) Resting Tone (Palpate): Relaxed (Dylan Pierce RN) Monitor Mode: External US (Dylan Pierce RN) FHR Baseline Rate : 150 (Dylan Pierce RN) Variability: Moderate 6-25 bpm (Dylan Pierce RN) Accelerations: None (Dylan Pierce RN) Decelerations: Early (Dylan Pierce RN) Pain Scale: 1 (Dylan Pierce RN) Pain Presence: Intermittent (Dylan Pierce RN) Pain Type: Pressure (Dylan Pierce RN) Pain Location: Perineum (Dylan Pierce RN) Pain Relief Measures: Epidural Given; Comfort Measures (Dylan Pierce RN) Pain Coping: Talking Through Contractions (Dylan Pierce RN) Comfort Measures: Family Support (Dylan Pierce RN) Communication: RN at Bedside; RN Reviewed Strip (Dylan Pierce RN) LaborFlag: Antepartum (QS system process) Datetime: 07/12/2016 17:38 Communication Comments: hand weaver reviewed strip, states late decelerations resolved and are now early decelerations. (Dylan Pierce RN) Datetime: 07/12/2016 17:36 NBP Sys/Azeb/Mean (mmHg): 114 (QS system process) : 55 (QS system process) : 74 (QS system process) Pulse: 79 (QS system process) LaborFlag: Antepartum (QS system process) Datetime: 07/12/2016 17:33 Monitor Interventions for UA: [place] Adjusted (Dylan Pierce, RN) Datetime: 07/12/2016 17:30 Monitor Mode: External; Palpation (Dylan Pierce, RN) Frequency (min): 2-3 (Dylan Pierce, RN) Quality: Moderate (Dylan Pierce RN) Resting Tone (Palpate): Relaxed (Dylan Pierce RN) Monitor Mode: External US (Dylan Pierce RN) Variability: Moderate 6-25 bpm (Dylan Pierce RN) Accelerations: None (Dylan Pierce RN) Decelerations: Late (Dylan Pierce RN) Communication: RN at Bedside; RN Reviewed Strip (Dylan Pierce RN) Communication Comments: Dr Hunter notified of decelerations and interventions (Dylan Pierce RN) Datetime: 07/12/2016 17:29 Monitor Interventions for UA: [place] Adjusted (Dylan Pierce, MICHELLE) Datetime: 07/12/2016 17:28 Anesthesia Interventions Other: Ephedrine (Dylan Pierce RN) Anesthesia Comments: 5mg (Dylan Pierce RN) Datetime: 07/12/2016 17:26 NBP Sys/Azeb/Mean (mmHg): 115 (QS system process) : 55 (QS system process) : 79 (QS system process) Pulse: 90 (QS system process) LaborFlag: Antepartum (QS system process) Datetime: 07/12/2016 17:24 Actions for Decelerations: Side to Side; IV Bolus (Dylan Kari, RN) Datetime: 07/12/2016 17:20 NBP Sys/Azeb/Mean (mmHg): 114 (QS system process) : 53 (QS system process) : 77 (QS system process) Pulse: 83 (QS system process) LaborFlag: Antepartum (QS system process) Datetime: 07/12/2016 17:15 Monitor Mode: External; Palpation (Dylan Pierce, RN) Frequency (min): 2-3 (Dylan Lazot, RN) Quality: Moderate (Dylan Rioseet, RN) Duration (sec): 60-80 (Dylan Rioseet, RN) Resting Tone (Palpate): Relaxed (Dylan Pierce, RN) Monitor Mode: External US (Dylan Pierce, RN) FHR Baseline Rate : 140 (Dylan Rioseet, RN) Variability: Moderate 6-25 bpm (Dylan Kari, RN) Accelerations: 15X15 (Dylan Kari, RN) Decelerations: None (Dylan Kari, RN) Comments: Broken tracing/ RN adjusting (Dylan Pierce, RN) Communication: RN at Bedside; RN Reviewed Strip (Dylan Pierce, RN) Datetime: 07/12/2016 17:09 Dilatation (cm): 7.0 (Dylan Rioseet, RN) Effacement (%): 100 (Dylan Rioseet, RN) Station: 0 (Dylan Pierce, MICHELLE) Exam by: S Kari RN (Dylan Pierce RN) Vaginal Bleeding: Normal Show (Dylan MICHELLE Pierce) Datetime: 07/12/2016 17:05 NBP Sys/Azeb/Mean (mmHg): 112 (QS system process) : 65 (QS system process) : 81 (QS system process) Pulse: 100 (QS system process) I/O Interventions: Hernández Cath Inserted (Dylan Pierce RN) LaborFlag: Antepartum (QS system process) Datetime: 07/12/2016 17:04 NBP Sys/Azeb/Mean (mmHg): 111 (QS system process) : 57 (QS system process) : 76 (QS system process) Pulse: 93 (QS system process) LaborFlag: Antepartum (QS system process) Datetime: 07/12/2016 17:03 NBP Sys/Azeb/Mean (mmHg): 99 (QS system process) : 54 (QS system process) : 68 (QS system process) Pulse: 115 (QS system process) LaborFlag: Antepartum (QS system process) Datetime: 07/12/2016 17:02 Pain Scale: 1 (Dylan Pierce RN) Patient Position/Activity: Right Tilt (Dylan Pierce RN) Anesthesia Level Check: T10- Umbilicus (Dylan Pierce RN) LaborFlag: Antepartum (QS system process) Datetime: 07/12/2016 17:01 NBP Sys/Azeb/Mean (mmHg): 106 (QS system process) : 60 (QS system process) : 78 (QS system process) Pulse: 90 (QS system process) LaborFlag: Antepartum (QS system process) Datetime: 07/12/2016 17:00 NBP Sys/Azeb/Mean (mmHg): 94 (QS system process) : 55 (QS system process) : 70 (QS system process) Pulse: 112 (QS system process) Monitor Mode: External US (Dylan Pierce RN) FHR Baseline Rate : 140 (Dylan Pierce RN) Variability: Moderate 6-25 bpm (Dylan Pierce RN) Comments: Broken tracing/ RN attempting to obtain fht continuously during epidural. (Dylan Pierce RN) LaborFlag: Antepartum (QS system process) Datetime: 07/12/2016 16:59 NBP Sys/Azeb/Mean (mmHg): 130 (QS system process) : 58 (QS system process) : 84 (QS system process) Pulse: 112 (QS system process) LaborFlag: Antepartum (QS system process) Datetime: 07/12/2016 16:57 NBP Sys/Azeb/Mean (mmHg): 141 (QS system process) : 65 (QS system process) : 94 (QS system process) Pulse: 123 (QS system process) LaborFlag: Antepartum (QS system process) Datetime: 07/12/2016 16:56 NBP Sys/Azeb/Mean (mmHg): 140 (QS system process) : 75 (QS system process) : 96 (QS system process) Pulse: 102 (QS system process) LaborFlag: Antepartum (QS system process) Datetime: 07/12/2016 16:55 NBP Sys/Azeb/Mean (mmHg): 154 (QS system process) : 75 (QS system process) : 106 (QS system process) Pulse: 111 (QS system process) Pulse: 85 (QS system process) SpO2 (%): 99 (QS system process) Epidural Procedure: Cath Placed; Loading Dose (Ydlan Kari, RN) LaborFlag: Antepartum (QS system process) Datetime: 07/12/2016 16:54 Epidural Procedure: Test Dose (Dylan Kari, RN) Datetime: 07/12/2016 16:52 NBP Sys/Azeb/Mean (mmHg): 141 (QS system process) : 67 (QS system process) : 97 (QS system process) Pulse: 101 (QS system process) LaborFlag: Antepartum (QS system process) Datetime: 07/12/2016 16:50 Pulse: 98 (QS system process) SpO2 (%): 88 (QS system process) LaborFlag: Antepartum (QS system process) Datetime: 07/12/2016 16:49 Pulse: 97 (QS system process) SpO2 (%): 93 (QS system process) LaborFlag: Antepartum (QS system process) Datetime: 07/12/2016 16:46 Procedure Verify: Correct Patient Identity; Correct Side and Site are Marked; Accurate Procedure Consent Form; Agreement on Procedure to be Done; Correct Patient Position; Relevant Images and Results are Properly Labeled and Displayed; Addressed Need to Administer Antibiotics or Fluids for Irrigation; Safety Precautions Based on Patient History or Medication Use (Dylan Pierce RN) Anesthesia Plans: Epidural (Dylan Kari, RN) Epidural Positioning: Sitting (Dylan Lazot, RN) Datetime: 07/12/2016 16:45 Pulse: 86 (QS system process) SpO2 (%): 99 (QS system process) LaborFlag: Antepartum (QS system process) Datetime: 07/12/2016 16:44 Anesthesia Comments: Dr arelis at bedside to assess pt, obtain consent for epidural. (Dylan Lazot, RN) Datetime: 07/12/2016 16:43 Dilatation (cm): 7.0 (Dylan Pierce RN) Effacement (%): 100 (Dylan Pierce RN) Station: 0 (Dylan Pierce RN) Exam by: Haritha Pierce RN (Dylan Pierce RN) Datetime: 07/12/2016 16:40 Contraction Comments: toco removed for epidural placement. (Dylan Pierce RN) Procedure Verify: Correct Patient Identity; Correct Side and Site are Marked; Accurate Procedure Consent Form; Agreement on Procedure to be Done; Correct Patient Position; Relevant Images and Results are Properly Labeled and Displayed; Addressed Need to Administer Antibiotics or Fluids for Irrigation; Safety Precautions Based on Patient History or Medication Use (Dylan Pierce RN) Anesthesia Plans: Epidural (Dylan Pierce RN) Epidural Positioning: Sitting (Dylan Pierce RN) Anesthesia Comments: Pt sitting for epidrual; RN attempting to obtain continuous fht during epidural procedure (Dylan Pierce RN) Datetime: 07/12/2016 16:30 Monitor Mode: External; Palpation (Dylan Pierce RN) Frequency (min): 2-3 (Dylan Pierce RN) Quality: Moderate (Dylan Pierce RN) Duration (sec): 50-70 (Dylan Pierce RN) Resting Tone (Palpate): Relaxed (Dylan Pierce RN) Monitor Mode: External US (Dylan Pierce RN) FHR Baseline Rate : 140 (Dylan Pierce RN) Variability: Moderate 6-25 bpm (Dylan Pierce RN) Accelerations: 15X15 (Dylan Pierce RN) Decelerations: None (Dylan Pierce RN) Procedure Verify: Correct Patient Identity; Correct Side and Site are Marked; Accurate Procedure Consent Form; Agreement on Procedure to be Done; Relevant Images and Results are Properly Labeled and Displayed; Addressed Need to Administer Antibiotics or Fluids for Irrigation; Safety Precautions Based on Patient History or Medication Use (Dylan Pierce RN) Anesthesia Plans: Epidural (Dylan Pierce RN) Communication: RN at Bedside; RN Reviewed Strip (Dylan Pierce RN) Datetime: 07/12/2016 16:20 Antibiotics: Start Antibiotics; Penicillin IV (Units) @ [id number] (Dylan Pierce RN) Medication Comments: Dr Hunter orders received to start penicillin protocol (Dylan Pierce RN) Datetime: 07/12/2016 16:17 Pain Scale: 4 (Dylan Pierce RN) Pain Presence: Intermittent (Dylan Pierce RN) Pain Type: Contraction (Dylan Pierce RN) Pain Location: Abdomen (Dylan Pierce RN) Pain Relief Measures: Comfort Measures (Dylan Pierce RN) Pain Coping: Breathing Through Contractions; Requesting Pain Medication or Epidural (Dylan Pierce RN) Dilatation (cm): 5.0 (Dylan Pierce RN) Effacement (%): 100 (Dylan Pierce RN) Station: 0 (Dylan Pierce RN) Exam by: Haritha Pierce RN (Dylan Pierce RN) Vaginal Bleeding: Normal Show (Dylan Pierce RN) Cervix, Consistency: Soft (Dylan Pierce RN) Cervix, Position: Midposition (Dylan Pierce RN) IV/Blood Work: IV Bolus Started (Dylan Pierce RN) Comfort Measures: Breathing/Relaxation (Dylan Pierce RN) Patient Care Comments: LR bolus for epidural (Dylan Pierce RN) Communication Comments: Dr Hunter notified of pt pain, ve. Orders for epidural recieved. (Dylan Pierce RN) LaborFlag: Antepartum (QS system process) Datetime: 07/12/2016 16:00 Respirations: 16 (Dylan Pierce RN) Temperature (F): 98.3 (Dylan Pierce RN) Temperature (C): 36.8 (QS system process) Monitor Mode: External; Palpation (Dylan Pierce RN) Frequency (min): irregular (Dylan Pierce RN) Quality: Mild (Dylan Pierce RN) Resting Tone (Palpate): Relaxed (Dylan Pierce RN) Monitor Mode: External US (Dylan Pierce RN) FHR Baseline Rate : 140 (Dylan Pierce RN) Variability: Moderate 6-25 bpm (Dylan Pierce RN) Accelerations: None (Dylan Pierce RN) Decelerations: None (Dylan Pierce RN) Level of Consciousness: Fully Conscious (Dylan Pierce RN) Headache: Denies (Dylan Pierce RN) Nausea/Vomiting: Denies (Dylan Pierce RN) RUQ Epigastric Pain: Denies (Dylan Pierce RN) Communication: RN at Bedside; RN Reviewed Strip (Dylan Pierce RN) LaborFlag: Antepartum (QS system process)
--- NOTE | 2016-07-12 20:00 | L&D Flow Sheet ---
LD Flowsheet Datetime Report Generated by CPN: 07/12/2016 20:00 Datetime: 07/12/2016 19:52 Antibiotics: Penicillin IV (Units) @ 2,500,000 (Crystal Rosa, RN) Datetime: 07/12/2016 19:50 NBP Sys/Azeb/Mean (mmHg): 124 (QS system process) : 67 (QS system process) : 89 (QS system process) Pulse: 92 (QS system process) LaborFlag: Antepartum (QS system process) Datetime: 07/12/2016 19:45 Monitor Mode: External; Palpation (Crystal Rosa, RN) Frequency (min): 3-3.5 (Crystal Rosa, RN) Quality: Moderate (Crystal Rosa, RN) Duration (sec): 80-90 (Crystal Parker, RN) Duration Criteria: Less than Two 120 Second Contractions (Crystal Parker, RN) Resting Tone (Palpate): Relaxed (Crystal Parker, RN) Monitor Mode: External US (Crystal Parker, RN) FHR Baseline Rate : 150 (Crystal Parker, RN) Variability: Moderate 6-25 bpm (Crystal Rosa, RN) Accelerations: 15X15 (Crystal Parker, RN) Patient Position/Activity: Left Tilt (Crystal Parker, RN) Datetime: 07/12/2016 19:44 Monitor Interventions for FHR: Ultrasound Adjusted (Crystal Parker, RN) Datetime: 07/12/2016 19:41 Membrane Status: Bulging (Crystal Rosa, RN) Datetime: 07/12/2016 19:35 NBP Sys/Azeb/Mean (mmHg): 131 (QS system process) : 74 (QS system process) : 96 (QS system process) Pulse: 92 (QS system process) LaborFlag: Antepartum (QS system process) Datetime: 07/12/2016 19:30 Monitor Mode: External; Palpation (Crystal Parker, RN) Monitor Interventions for UA: [place] Adjusted (Crystal Parker, RN) Frequency (min): 2-4 (Crystal Rosa, RN) Quality: Moderate to Strong (Crystal Parker, RN) Duration (sec): 60-90 (Crystal Rosa, RN) Duration Criteria: Less than Two 120 Second Contractions (Crystal Parker, RN) Resting Tone (Palpate): Relaxed (Crystal Parker, RN) Monitor Mode: External US (Crystal Rosa, RN) FHR Baseline Rate : 150 (Crystal Rosa, RN) Variability: Moderate 6-25 bpm (Crystal Parker, RN) Decelerations: Variable (Crystal Rosa, RN) Patient Position/Activity: Left Lateral; Semi-Fowlers (Crystal Rosa, RN) Datetime: 07/12/2016 19:22 NBP Sys/Azeb/Mean (mmHg): 128 (QS system process) : 60 (QS system process) : 87 (QS system process) Pulse: 85 (QS system process) LaborFlag: Antepartum (QS system process) Datetime: 07/12/2016 19:15 Monitor Mode: External; Palpation (Dylan Pierce RN) Frequency (min): 3-4 (Dylan Pierce RN) Quality: Moderate to Strong (Dylan Pierce RN) Duration (sec): 80-100 (Dylan Pierce RN) Resting Tone (Palpate): Relaxed (Dylan Pierce RN) Monitor Mode: External US (Dylan Pierce RN) FHR Baseline Rate : 150 (Dylan Pierce RN) Variability: Moderate 6-25 bpm (Dylan Pierce RN) Accelerations: 15X15 (Dylan Pierce RN) Decelerations: Early (Dylan Pierce RN) Level of Consciousness: Fully Conscious (Isamar Lee RN) Headache: Denies (Isamar Lee RN) Breath Sounds, Left: Clear and Equal (Isamar Lee RN) Breath Sounds, Right: Clear and Equal (Isamar Lee RN) Nausea/Vomiting: Denies (Isamar Lee RN) RUQ Epigastric Pain: Denies (Isamar Lee RN) IV/Blood Work: New IV Bag Hung (Annotations: LR 125ml/hr ) (Dylan Pierce RN) Communication: RN at Bedside; RN Reviewed Strip; Report Given to @ Shalom Lee RN (Dylan Pierce RN) Datetime: 07/12/2016 19:05 NBP Sys/Azeb/Mean (mmHg): 129 (QS system process) : 62 (QS system process) : 89 (QS system process) Pulse: 83 (QS system process) LaborFlag: Antepartum (QS system process) Datetime: 07/12/2016 19:00 Monitor Mode: External; Palpation (Dylan Pierce, RN) Frequency (min): 2-4 (Dylan Pierce, RN) Quality: Moderate (Dylan Lazot, RN) Duration (sec): 80-90 (Dylan Pierce, RN) Resting Tone (Palpate): Relaxed (Dylan Pierce, RN) Monitor Mode: External US (Dylan Pierce RN) FHR Baseline Rate : 150 (Dylan Lazot, RN) Variability: Moderate 6-25 bpm (Dylan Rioseet, RN) Accelerations: None (Dylan Rioseet, RN) Decelerations: None (Dylan Pierce, RN) Communication: RN at Bedside; RN Reviewed Strip (Dylan Pierce RN) Datetime: 07/12/2016 18:50 NBP Sys/Azeb/Mean (mmHg): 134 (QS system process) : 71 (QS system process) : 97 (QS system process) Pulse: 90 (QS system process) LaborFlag: Antepartum (QS system process) Datetime: 07/12/2016 18:45 Respirations: 16 (Dylan Pierce RN) Monitor Mode: External; Palpation (Dylan Pierce RN) Frequency (min): 2-4 (Dylan Pierce, RN) Quality: Moderate (Dylan Pierce RN) Duration (sec): 60-90 (Dylan Pierce RN) Resting Tone (Palpate): Relaxed (Dylan Pierce RN) Monitor Mode: External US (Dylan Pierce, RN) FHR Baseline Rate : 150 (Dylan Pierce, RN) Variability: Moderate 6-25 bpm (Dylan Pierce, RN) Accelerations: 10X10 (Dylan Pierce, RN) Decelerations: Early (Dylan Pierce RN) Communication: RN at Bedside; RN Reviewed Strip (Dylan Pierce RN) LaborFlag: Antepartum (QS system process) Datetime: 07/12/2016 18:35 NBP Sys/Azeb/Mean (mmHg): 137 (QS system process) : 71 (QS system process) : 97 (QS system process) Pulse: 88 (QS system process) LaborFlag: Antepartum (QS system process) Datetime: 07/12/2016 18:30 Monitor Mode: External; Palpation (Dylan Pierce, RN) Frequency (min): 2-3 (Dylan Lazot, RN) Quality: Moderate (Dylan Lazot, RN) Duration (sec): 80-100 (Dylan Rioseet, RN) Resting Tone (Palpate): Relaxed (Dylan Rioseet, RN) Monitor Mode: External US (Dylan Lazot, RN) FHR Baseline Rate : 150 (Dylan Rioseet, RN) Variability: Moderate 6-25 bpm (Dylan Kari, RN) Accelerations: 15X15 (Dylan Kari, RN) Decelerations: Early (Dylan Pierce, RN) Communication: RN at Bedside; RN Reviewed Strip (Dylan Pierce RN) Datetime: 07/12/2016 18:20 NBP Sys/Azeb/Mean (mmHg): 129 (QS system process) : 71 (QS system process) : 94 (QS system process) Pulse: 82 (QS system process) LaborFlag: Antepartum (QS system process) Datetime: 07/12/2016 18:15 Respirations: 16 (Dylan Pierce RN) Monitor Mode: External; Palpation (Dylan Pierce RN) Frequency (min): 2-4 (Dylan Pierce RN) Quality: Moderate (Dylan Pierce RN) Duration (sec): 70-90 (Dylan Pierce RN) Resting Tone (Palpate): Relaxed (Dylan Pierce RN) Monitor Mode: External US (Dylan Pierce RN) FHR Baseline Rate : 150 (Dylan Pierce RN) Variability: Moderate 6-25 bpm (Dylan Pierce RN) Accelerations: 10X10 (Dylan Pierce RN) Decelerations: Early (Dylan Pierce RN) Pain Coping: Sleeping (Dylan Pierce RN) Communication: RN at Bedside; RN Reviewed Strip (Dylan Pierce RN) LaborFlag: Antepartum (QS system process) Datetime: 07/12/2016 18:06 NBP Sys/Azeb/Mean (mmHg): 122 (QS system process) : 62 (QS system process) : 86 (QS system process) Pulse: 77 (QS system process) LaborFlag: Antepartum (QS system process) Datetime: 07/12/2016 18:02 Temperature (F): 98.4 (Dylan Kari, RN) Temperature (C): 36.9 (QS system process) LaborFlag: Antepartum (QS system process) Datetime: 07/12/2016 18:00 Respirations: 16 (Dylan Pierce RN) Monitor Mode: External; Palpation (Dylan Pierce RN) Frequency (min): 2-4 (Dylan Pierce, RN) Quality: Moderate (Dylan Pierce RN) Duration (sec): 70-90 (Dylan Pierce RN) Resting Tone (Palpate): Relaxed (Dylan Pierce RN) Monitor Mode: External US (Dylan Pierce RN) FHR Baseline Rate : 150 (Dylan Pierce RN) Variability: Moderate 6-25 bpm (Dylan Pierce RN) Accelerations: None (Dylan Pierce RN) Decelerations: None (Dylan Pierce RN) Pain Scale: 1 (Dylan Pierce RN) Pain Presence: Intermittent (Dylan Pierce RN) Pain Type: Pressure (Dylan Pierce RN) Pain Location: Perineum (Dylan Pierce RN) Pain Relief Measures: Epidural Given (Dylan Pierce RN) Pain Coping: Talking Through Contractions (Dylan Pierce RN) Level of Consciousness: Fully Conscious (Dylan Pierce RN) Headache: Denies (Dylan Pierce RN) Breath Sounds, Left: Clear and Equal (Dylan Pierce RN) Breath Sounds, Right: Clear and Equal (Dylan Pierce RN) Nausea/Vomiting: Denies (Dylan Pierce RN) RUQ Epigastric Pain: Denies (Dylan Pierce RN) Comfort Measures: Breathing/Relaxation (Dylan Pierce RN) Communication: RN at Bedside; RN Reviewed Strip (Dylan Pierce RN) LaborFlag: Antepartum (QS system process)
[2016-07-12] MEDS ORDERED: PENICILLIN G POTASSIUM 2,500,000 UNIT in DEXTROSE 5%-WATER 50 ML IV SCH (20:20)
[2016-07-12] MEDS ORDERED: ACETAMINOPHEN 325 MG TABLET ONE (21:38)
--- NOTE | 2016-07-12 22:01 | L&D Flow Sheet ---
LD Flowsheet Datetime Report Generated by CPN: 07/12/2016 22:00 Datetime: 07/12/2016 21:56 Stage of : Recovery (Crystal Rosa, RN) Temperature (F): 99.4 (Crystal Rosa, RN) Temperature (C): 37.4 (QS system process) Temperature Route: Oral (Crystal [place] Station, RN) Datetime: 07/12/2016 21:50 NBP Sys/Azeb/Mean (mmHg): 145 (QS system process) : 65 (QS system process) : 93 (QS system process) Pulse: 82 (QS system process) Datetime: 07/12/2016 21:45 Stage of : Recovery (Crystal Rosa, RN) Datetime: 07/12/2016 21:43 Stage of : Recovery (Crystal [place], RN) Datetime: 07/12/2016 21:35 NBP Sys/Azeb/Mean (mmHg): 138 (QS system process) : 66 (QS system process) : 93 (QS system process) Pulse: 96 (QS system process) Datetime: 07/12/2016 21:30 Stage of : Recovery (Crystal Rosa, RN) Pain Scale: 2 (Crystal [place], RN) Pain Presence: Intermittent (Crystal Alfred Station, RN) Pain Type: Dull (Crystal Alfred Station, RN) Pain Location: Head (Crystal Alfred Station, RN) Pain Goal: 1 (Crystal Alfred Station, RN) Pain Relief Measures: Comfort Measures (Crystal Alfred Station, RN) Datetime: 07/12/2016 21:20 NBP Sys/Azeb/Mean (mmHg): 139 (QS system process) : 64 (QS system process) : 90 (QS system process) Pulse: 96 (QS system process) Datetime: 07/12/2016 21:15 Stage of : Recovery (Crystal Rosa, RN) Pain Scale: 2 (Crystal Rosa, RN) Pain Presence: Intermittent (Crystal Rosa, RN) Pain Type: Dull (Crystal [place], RN) Pain Location: Head (Crystal Alfred Station, RN) Pain Goal: 1 (Crystal [place] Station, RN) Pain Relief Measures: Comfort Measures (Crystal Alfred Station, RN) Datetime: 07/12/2016 21:09 Stage 2 Comments: NVD viable baby girl. (Crystal Rosa, RN) Communication: Provider at Bedside (Crystal Rosa, RN) Provider Notified (Name): Dr. Hunter (Crystal Rosa, RN) Datetime: 07/12/2016 21:06 Pushing: Coached on Pushing; Involuntary Pushing (Crystal Rosa, RN) Pushing Progress: with Pushing (Crystal Rosa, RN) Stage 2 Comments: Dr. Hunter notified. (Crystal [place], RN) Datetime: 07/12/2016 21:05 NBP Sys/Azeb/Mean (mmHg): 139 (QS system process) : 63 (QS system process) : 91 (QS system process) Pulse: 151 (QS system process) LaborFlag: Antepartum (QS system process) Datetime: 07/12/2016 21:00 Monitor Mode: External; Palpation (Crystal [place], RN) Frequency (min): 3 (Crystal Alfred Station, RN) Quality: Moderate to Strong (Crystal Alfred Station, RN) Duration (sec): 70-80 (Crystal Alfred Station, RN) Duration Criteria: Less than Two 120 Second Contractions (Crystal [place], RN) Resting Tone (Palpate): Relaxed (Crystal [place], RN) Monitor Mode: External US (Crystal Rosa, RN) FHR Baseline Rate : 160 (Crystal Rosa, RN) Variability: Moderate 6-25 bpm (Crystal [place], RN) Accelerations: 15X15 (Crystal Alfred Station, RN) Datetime: 07/12/2016 20:56 Monitor Mode: External (Crystal [place], RN) Frequency (min): 3-4 (Crystal Rosa, RN) Quality: Moderate (Crystal Rosa, RN) Duration (sec): 60-70 (Crystal Alfred Station, RN) Duration Criteria: Less than Two 120 Second Contractions (Crystal Rosa, RN) Resting Tone (Palpate): Relaxed (Crystal Rosa, RN) Monitor Mode: External US (Crystal [place] Station, RN) FHR Baseline Rate : 150 (Crystal Rosa, RN) Variability: Moderate 6-25 bpm (Crystal Alfred Station, RN) Accelerations: 15X15 (Crystal Alfred Station, RN) Pushing: Coached on Pushing; Urge to Push (Crystal Rosa, RN) Pushing Position: Pushing with Contractions (Crystal Rosa, RN) Datetime: 07/12/2016 20:52 Pushing Position: Pushing with Contractions; Pushing Lithotomy (Leandra Harper RN) Datetime: 07/12/2016 20:51 Comments: RN at bedside continuously monitoring FHTs while patient is pushing with contractions (Leandra Harper RN) Datetime: 07/12/2016 20:50 NBP Sys/Azeb/Mean (mmHg): 135 (QS system process) : 64 (QS system process) : 92 (QS system process) Pulse: 127 (QS system process) Dilatation (cm): 10.0 (Leandra Harper RN) Effacement (%): 100 (Leandra Harper RN) Station: 1 (Leandra Harper RN) Exam by: Manny Lee RN (Leandra Harper RN) LaborFlag: Antepartum (QS system process) Datetime: 07/12/2016 20:45 Temperature (F): 99.4 (Crystal Alfred Station, RN) Temperature (C): 37.4 (QS system process) Frequency (min): 3-4 (Crystal Alfred Station, RN) Duration (sec): 60-90 (Crystal Alfred Station, RN) Resting Tone (Palpate): Relaxed (Crystal Rosa, RN) Monitor Mode: External US (Crystal Rosa, RN) FHR Baseline Rate : 160 (Crystal Rosa, RN) Variability: Moderate 6-25 bpm (Crystal Rosa, RN) Accelerations: 15X15 (Crystal Alfred Station, RN) LaborFlag: Antepartum (QS system process) Datetime: 07/12/2016 20:43 Pushing Position: Laboring Down (Crystal Rosa, RN) Datetime: 07/12/2016 20:40 Pushing: Coached on Pushing; Urge to Push (Crystal Alfred Station, RN) Pushing Position: Pushing with Contractions (Crystal Rosa, RN) Datetime: 07/12/2016 20:38 Pushing: Coached on Pushing; No Urge to Push (Crystal Alfred Station, RN) Pushing Position: Pushing with Contractions; Pushing Lithotomy (Crystal Alfred Station, RN) Datetime: 07/12/2016 20:36 NBP Sys/Azeb/Mean (mmHg): 152 (QS system process) : 84 (QS system process) : 103 (QS system process) Pulse: 125 (QS system process) LaborFlag: Antepartum (QS system process) Datetime: 07/12/2016 20:32 Pushing: Urge to Push (Crystal Rosa, RN) Datetime: 07/12/2016 20:30 Monitor Mode: External; Palpation (Crystal Alfred Station, RN) Monitor Interventions for UA: [place] Adjusted (Crystal Rosa, RN) Frequency (min): 3-4 (Crystal Rosa, RN) Quality: Moderate to Strong (Crystal Rosa, RN) Duration (sec): 60-80 (Crystal Rosa, RN) Duration Criteria: Less than Two 120 Second Contractions (Crystal Rosa, RN) Resting Tone (Palpate): Relaxed (Crystal Alfred Station, RN) Monitor Mode: External US (Crystal Alfred Station, RN) FHR Baseline Rate : 155 (Crystal Alfred Station, RN) Variability: Moderate 6-25 bpm (Crystal Alfred Station, RN) Patient Position/Activity: Tailors (Crystal Alfred Station, RN) Datetime: 07/12/2016 20:28 Membrane Status: Ruptured (Crystal Alfred Station, RN) Membranes Ruptured Date/Time: 07/12/2016 20:28 (Leandra Harper RN) Membranes Rupture Method: Spontaneous (Crystal Rosa, RN) Amniotic Fluid Color: Clear (Crystal Alfred Station, RN) Amniotic Fluid Amount: Small (Crystal Alfred Station, RN) Amniotic Fluid Odor: Normal (Crystal Rosa, RN) Datetime: 07/12/2016 20:21 NBP Sys/Azeb/Mean (mmHg): 146 (QS system process) : 85 (QS system process) : 109 (QS system process) Pulse: 107 (QS system process) LaborFlag: Antepartum (QS system process) Datetime: 07/12/2016 20:15 Monitor Mode: External; Palpation (Crystal Rosa, RN) Frequency (min): 2-3 (Crystal Alfred Station, RN) Quality: Moderate to Strong (Crystal Alfred Station, RN) Duration (sec): 60-90 (Crystal Alfred Station, RN) Duration Criteria: Less than Two 120 Second Contractions (Crystal Alfred Station, RN) Resting Tone (Palpate): Relaxed (Crystal Alfred Station, RN) Monitor Mode: External US (Crystal Rosa, RN) FHR Baseline Rate : 160 (Crystal Alfred Station, RN) Variability: Moderate 6-25 bpm (Crystal Rosa, RN) Accelerations: 15X15 (Crystal Rosa, RN) Patient Position/Activity: Left Lateral (Crystal Alfred Station, RN) Datetime: 07/12/2016 20:07 Pushing: Urge to Push (Crystal Rosa, RN) Datetime: 07/12/2016 20:06 NBP Sys/Azeb/Mean (mmHg): 158 (QS system process) : 88 (QS system process) : 113 (QS system process) Pulse: 98 (QS system process) Temperature (F): 99.5 (Isamar Lee RN) Temperature (C): 37.5 (QS system process) LaborFlag: Antepartum (QS system process)
[2016-07-12] MEDS ORDERED: DIPHENHYDRAMINE HCL 25 MG CAPSULE PO PRN (22:19)
[2016-07-12] MEDS ORDERED: BENZOCAINE/MENTHOL AEROSOL SPRAY 56 ML TOP PRN (22:19)
[2016-07-12] MEDS ORDERED: PROMETHAZINE HCL 25 MG SUPP.RECT PR PRN (22:19)
[2016-07-12] MEDS ORDERED: ZOLPIDEM TARTRATE 5 MG TABLET PO PRN (22:19)
[2016-07-12] MEDS ORDERED: PROMETHAZINE HCL 25 MG TABLET PO PRN (22:19)
[2016-07-12] MEDS ORDERED: ACETAMINOPHEN 650 MG SUPP.RECT PR PRN (22:19)
[2016-07-12] MEDS ORDERED: DIBUCAINE 1% OINTMENT 28 GM TP PRN (22:19)
[2016-07-12] MEDS ORDERED: PSEUDOEPHEDRINE HCL 30 MG TABLET PO PRN (22:19)
[2016-07-12] MEDS ORDERED: MAGNESIUM HYDROXIDE SUSP 30 ML UDCUP PO PRN (22:19)
[2016-07-12] MEDS ORDERED: DIPH/PERTUSS(ACELL)/TETANUS VAC/PF 0.5 ML SYR (>=10YO) IM PRN (22:19)
[2016-07-12] MEDS ORDERED: NA PHOS,M-B/NA PHOS,DI-BA (ADULT) 133 ML ENEMA PR PRN (22:19)
[2016-07-12] MEDS ORDERED: ACETAMINOPHEN WITH CODEINE #3 TABLET PO PRN ×2 (22:19)
[2016-07-12] MEDS ORDERED: GLYCERIN/WITCH HAZEL LEAF 1 EACH MED..PAD TP PRN (22:19)
[2016-07-12] MEDS ORDERED: PROMETHAZINE HCL INJ 25 MG/1 ML VIAL IV PRN (22:19)
[2016-07-12] MEDS ORDERED: MEASLES,MUMPS&RUBELLA VACC/PF 0.5 ML VIAL SUBCUT PRN (22:19)
--- NOTE | 2016-07-12 23:53 | Delivery Summary ---
Del Sum A-C Datetime Report Generated by CPN: 07/12/2016 23:53 ADMISSION DATA Chief Complaint: Scheduled Induction of Labor Indication for Induction: Maternal Diabetes Admission Impression: Induction of Labor Admit Provider Comments: 7-8 lbs DELIVERY PERSONNEL Delivery Doctor:: Reji Hunter DO Anesthesiologist:: Jason Riley MD Labor and Delivery Nurse:: Isamar Lee RN Labor and Delivery Nurse:: Leandra Harper RN Power Cleaner Operator/WEB APPLICATIONS DEVELOPER: Hayley Semar, EXECUTIVE ASSISTANT MATERNAL INFORMATION Delivery Anesthesia: Epidural Medications After Delivery: Pitocin Drip 20 Units/1000ml NSS Estimated Blood Loss (ml): 300 Maternal Complications: None Provider Comments: of viable female in BC position Placenta delievered spontaneous and intact with 3v cord Fundus firm LABOR SUMMARY EDC: 07/16/2016 00:00 No. Babies in Womb: 1 Attempted: No Labor Anesthesia: Epidural LABOR INFORMATION Reason for Induction: Maternal Diabetes Onset of Labor: 07/12/2016 16:17 Complete Dilatation: 07/12/2016 20:50 Cervical Ripening Agents: Cervidil; Cytotec @ Oxytocin: N/A Group B Beta Strep: Positive Antibiotics # of Doses: 2 Antibiotics Time of Last Dose: 1950 Name of Antibiotic Given: PCN Steroids Given: None Reason Steroids Not Administered: Not Applicable MEMBRANES Membranes Rupture Method: Spontaneous Rupture of Membranes: 07/12/2016 20:28 Length of Rupture (hr): 0.68 Amniotic Fluid Color: Clear Amniotic Fluid Amount: Small Amniotic Fluid Odor: Normal STAGES OF LABOR Stage 1 hr: 4 Stage 1 min: 33 Stage 2 hr: 0 Stage 2 min: 19 Stage 3 hr: 0 Stage 3 min: 2 Total Time in Labor hr: 4 Total Time in Labor min: 54 VAGINAL DELIVERY Episiotomy: None Laceration Extension: First Degree Laceration Type: Perineal Laceration Repair Note: repaired with 3-0 chromic in usual fashion with good hemostasis Sponge Count Correct: Yes Sharps Count Correct: Yes CSECTION DELIVERY Primary Indication: N/A Secondary Indication: N/A BABY A INFORMATION Delivery Date/Time: 07/12/2016 21:09 Method of Delivery: Vaginal Born in Route : No : N/A Forceps: N/A Vacuum Extraction: N/A Shoulder Dystocia : No PRESENTATION/POSITION BABY A Presentation: Cephalic Cephalic Presentation: Vertex Vertex Position: Left Occipital Anterior Breech Presentation: N/A PLACENTA INFORMATION BABY A Placenta Delivery Time : 07/12/2016 21:11 Placenta Method of Delivery: Spontaneous Placenta Status: Delivered SCORES BABY A Heart Rate 1 min: >100 bpm Resp Effort 1 min: Good Cry Reflex Irritability 1 min: Cough or Sneeze or Pulls Away Muscle Tone 1 min: Active Motion Color 1 min: Body [place], Extremities Blue Resuscitation Effort 1 min: Tactile Stimulation SCORE 1 MIN: 9 Heart Rate 5 min: >100 bpm Resp Effort 5 min: Good Cry Reflex Irritability 5 min: Cough or Sneeze or Pulls Away Muscle Tone 5 min: Active Motion Color 5 min: Body [place], Extremities Blue Resuscitation Effort 5 min: Tactile Stimulation SCORE 5 MIN: 9 INFORMATION BABY A Gestational Age at Delivery: 39.3 Gestational Status: Full Term- 39- 40.6 Weeks Outcome : Liveborn Condition : Stable Sex: Female IDENTIFICATION BABY A Verification Date/Time: 07/12/2016 21:14 ID Band Number: [id number] Mother's Name Verified: Yes Infant RN Verifying Infant: R Vidal, RNC Additional Verifying Personnel: D Jonathan, US WEIGHT/LENGTH BABY A Infant Birthweight (gm): 3450 Weight (lb): 7 Weight (oz): 10 Length (in): 19.25 Infant Length (cm): 48.90 CORD INFORMATION BABY A No. Cord Vessels: 3 Nuchal Cord : N/A Cord Blood Taken: Yes-For Storage (Mom's Blood type +) Infant Suction: Mouth ASSESSMENT BABY A Infant Complications: None Physical Findings at Delivery: Within Normal Limits Infant Respirations: Appears Normal Skin to Skin: Yes Skin to Skin Time (min): Baby to nursery with RN. Audio/Video Engineer/ALS Called : No Infant Care By: Gerri Harper RN Transferred To: Remains with Mother BABY B INFORMATION : N/A SIGNATURES Signature: with User ID: Marsha
[2016-07-13] MEDS: IBUPROFEN 800 MG TABLET PO SCH ×3 (06:12→21:55)
--- NOTE | 2016-07-13 07:01 | L&D Flow Sheet ---
LD Flowsheet Datetime Report Generated by CPN: 07/13/2016 07:00 Datetime: 07/12/2016 23:15 Stage of : Recovery (Crystal Rosa, RN) Datetime: 07/12/2016 23:05 NBP Sys/Azeb/Mean (mmHg): 114 (QS system process) : 55 (QS system process) : 79 (QS system process) Pulse: 85 (QS system process) Datetime: 07/12/2016 23:00 Stage of : Recovery (Crystal Rosa, RN) Datetime: 07/12/2016 22:50 NBP Sys/Azeb/Mean (mmHg): 114 (QS system process) : 54 (QS system process) : 78 (QS system process) Pulse: 81 (QS system process) Datetime: 07/12/2016 22:45 Stage of : Recovery (Crystal Du Pont, RN) Pain Scale: 1 (Crystal Du Pont, RN) Pain Presence: Intermittent (Crystal Du Pont, RN) Pain Type: Ache (Crystal Rosa, RN) Pain Location: Perineum; Head (Crystal Du Pont, RN) Pain Goal: 1 (Crystal Du Pont, RN) Pain Relief Measures: Pain Medication Given; Comfort Measures (Crystal Rosa, RN) Datetime: 07/12/2016 22:35 NBP Sys/Azeb/Mean (mmHg): 112 (QS system process) : 59 (QS system process) : 76 (QS system process) Pulse: 78 (QS system process) Datetime: 07/12/2016 22:30 Stage of : Recovery (Crystal Du Pont, RN) Datetime: 07/12/2016 22:20 Stage of : Recovery (Crystal Rosa, RN) NBP Sys/Azeb/Mean (mmHg): 125 (QS system process) : 58 (QS system process) : 83 (QS system process) Pulse: 87 (QS system process) Datetime: 07/12/2016 22:15 Stage of : Recovery (Crystal Rosa, RN) Datetime: 07/12/2016 22:00 Stage of : Recovery (Crystal Du Pont, RN) Datetime: 07/12/2016 21:56 Stage of : Recovery (Crystal Du Pont, RN) Temperature (F): 99.4 (Crystal Rosa, RN) Temperature (C): 37.4 (QS system process) Temperature Route: Oral (Crystal Du Pont, RN) Datetime: 07/12/2016 21:50 NBP Sys/Azeb/Mean (mmHg): 145 (QS system process) : 65 (QS system process) : 93 (QS system process) Pulse: 82 (QS system process) Datetime: 07/12/2016 21:45 Stage of : Recovery (Crystal Du Pont, RN) Datetime: 07/12/2016 21:43 Stage of : Recovery (Isamar Lee, RN) Datetime: 07/12/2016 21:35 NBP Sys/Azeb/Mean (mmHg): 138 (QS system process) : 66 (QS system process) : 93 (QS system process) Pulse: 96 (QS system process) Datetime: 07/12/2016 21:30 Stage of : Recovery (Isamar Lee RN) Pain Scale: 2 (Isamar Lee RN) Pain Presence: Intermittent (Isamar Lee RN) Pain Type: Dull (Isamar Lee RN) Pain Location: Head (Isamar Lee RN) Pain Goal: 1 (Isamar Lee RN) Pain Relief Measures: Comfort Measures (Crystal Du Pont, RN) Datetime: 07/12/2016 21:20 NBP Sys/Azeb/Mean (mmHg): 139 (QS system process) : 64 (QS system process) : 90 (QS system process) Pulse: 96 (QS system process) Datetime: 07/12/2016 21:15 Stage of : Recovery (Crystal Du Pont, RN) Pain Scale: 2 (Crystal Rosa, RN) Pain Presence: Intermittent (Crystal Rosa, RN) Pain Type: Dull (Crystal Rosa, RN) Pain Location: Head (Crystal Rosa, RN) Pain Goal: 1 (Crystal Rosa, RN) Pain Relief Measures: Comfort Measures (Crystal Rosa, RN) Datetime: 07/12/2016 21:09 Stage 2 Comments: NVD viable baby girl. (Crystal Rosa, RN) Communication: Provider at Bedside (Isamar Lee, RN) Provider Notified (Name): Dr. Hunter (Crystal Du Pont, RN) Datetime: 07/12/2016 21:06 Pushing: Coached on Pushing; Involuntary Pushing (Crystal Du Pont, RN) Pushing Progress: with Pushing (Crystal Rosa, RN) Stage 2 Comments: Dr. Hunter notified. (Crystal Du Pont, RN) Datetime: 07/12/2016 21:05 NBP Sys/Azeb/Mean (mmHg): 139 (QS system process) : 63 (QS system process) : 91 (QS system process) Pulse: 151 (QS system process) LaborFlag: Antepartum (QS system process) Datetime: 07/12/2016 21:00 Monitor Mode: External; Palpation (Crystal Rosa, RN) Frequency (min): 3 (Crystal Rosa, RN) Quality: Moderate to Strong (Crystal Du Pont, RN) Duration (sec): 70-80 (Crystal Rosa, RN) Duration Criteria: Less than Two 120 Second Contractions (Crystal Rosa, RN) Resting Tone (Palpate): Relaxed (Crystal Du Pont, RN) Monitor Mode: External US (Crystal Rosa, RN) FHR Baseline Rate : 160 (Crystal Du Pont, RN) Variability: Moderate 6-25 bpm (Crystal Rosa, RN) Accelerations: 15X15 (Crystal Rosa, RN) Datetime: 07/12/2016 20:56 Monitor Mode: External (Crystal Du Pont, RN) Frequency (min): 3-4 (Crystal Rosa, RN) Quality: Moderate (Crystal Du Pont, RN) Duration (sec): 60-70 (Crystal Du Pont, RN) Duration Criteria: Less than Two 120 Second Contractions (Crystal Du Pont, RN) Resting Tone (Palpate): Relaxed (Crystal Du Pont, RN) Monitor Mode: External US (Crystal Du Pont, RN) FHR Baseline Rate : 150 (Crystal Du Pont, RN) Variability: Moderate 6-25 bpm (Crystal Du Pont, RN) Accelerations: 15X15 (Crystal Du Pont, RN) Pushing: Coached on Pushing; Urge to Push (Crystal Rosa, RN) Pushing Position: Pushing with Contractions (Crystal Du Pont, RN) Datetime: 07/12/2016 20:52 Pushing Position: Pushing with Contractions; Pushing Lithotomy (Leandra Marlatt, RN) Datetime: 07/12/2016 20:51 Comments: RN at bedside continuously monitoring FHTs while patient is pushing with contractions (Leandra Marlatt, RN) Datetime: 07/12/2016 20:50 NBP Sys/Azeb/Mean (mmHg): 135 (QS system process) : 64 (QS system process) : 92 (QS system process) Pulse: 127 (QS system process) Dilatation (cm): 10.0 (Leandra Harper RN) Effacement (%): 100 (Leandra Harper RN) Station: 1 (Leandra Harper RN) Exam by: Manny Lee RN (Leandra Harper RN) LaborFlag: Antepartum (QS system process) Datetime: 07/12/2016 20:45 Temperature (F): 99.4 (Crystal Du Pont, RN) Temperature (C): 37.4 (QS system process) Frequency (min): 3-4 (Crystal Rosa, RN) Duration (sec): 60-90 (Crystal Du Pont, RN) Resting Tone (Palpate): Relaxed (Crystal Rosa, RN) Monitor Mode: External US (Isamar Du Pont, RN) FHR Baseline Rate : 160 (Crystal Rosa, RN) Variability: Moderate 6-25 bpm (Crystal Rosa, RN) Accelerations: 15X15 (Crystal Du Pont, RN) LaborFlag: Antepartum (QS system process) Datetime: 07/12/2016 20:43 Pushing Position: Laboring Down (Crystal Du Pont, RN) Datetime: 07/12/2016 20:40 Pushing: Coached on Pushing; Urge to Push (Crystal Du Pont, RN) Pushing Position: Pushing with Contractions (Crystal Du Pont, RN) Datetime: 07/12/2016 20:38 Pushing: Coached on Pushing; No Urge to Push (Crystal Rosa, RN) Pushing Position: Pushing with Contractions; Pushing Lithotomy (Crystal Rosa, RN) Datetime: 07/12/2016 20:36 NBP Sys/Azeb/Mean (mmHg): 152 (QS system process) : 84 (QS system process) : 103 (QS system process) Pulse: 125 (QS system process) LaborFlag: Antepartum (QS system process) Datetime: 07/12/2016 20:32 Pushing: Urge to Push (Crystal Rosa, RN) Datetime: 07/12/2016 20:30 Monitor Mode: External; Palpation (Crystal Du Pont, RN) Monitor Interventions for UA: [place] Adjusted (Crystal Rosa, RN) Frequency (min): 3-4 (Crystal Rosa, RN) Quality: Moderate to Strong (Crystal Rosa, RN) Duration (sec): 60-80 (Crystal Du Pont, RN) Duration Criteria: Less than Two 120 Second Contractions (Crystal Du Pont, RN) Resting Tone (Palpate): Relaxed (Crystal Rosa, RN) Monitor Mode: External US (Crystal Rosa, RN) FHR Baseline Rate : 155 (Crystal Du Pont, RN) Variability: Moderate 6-25 bpm (Crystal Rosa, RN) Patient Position/Activity: Tailors (Crystal Du Pont, RN) Datetime: 07/12/2016 20:28 Membrane Status: Ruptured (Crystal Du Pont, RN) Membranes Ruptured Date/Time: 07/12/2016 20:28 (Leandra Harper RN) Membranes Rupture Method: Spontaneous (Crystal Rosa, RN) Amniotic Fluid Color: Clear (Crystal Rosa, RN) Amniotic Fluid Amount: Small (Crystal Rosa, RN) Amniotic Fluid Odor: Normal (Crystal Du Pont, RN) Datetime: 07/12/2016 20:21 NBP Sys/Azeb/Mean (mmHg): 146 (QS system process) : 85 (QS system process) : 109 (QS system process) Pulse: 107 (QS system process) LaborFlag: Antepartum (QS system process) Datetime: 07/12/2016 20:15 Monitor Mode: External; Palpation (Crystal Du Pont, RN) Frequency (min): 2-3 (Crystal Rosa, RN) Quality: Moderate to Strong (Crystal Du Pont, RN) Duration (sec): 60-90 (Crystal Du Pont, RN) Duration Criteria: Less than Two 120 Second Contractions (Crystal Du Pont, RN) Resting Tone (Palpate): Relaxed (Crystal Rosa, RN) Monitor Mode: External US (Crystal Rosa, RN) FHR Baseline Rate : 160 (Crystal Du Pont, RN) Variability: Moderate 6-25 bpm (Crystal Rosa, RN) Accelerations: 15X15 (Crystal Rosa, RN) Patient Position/Activity: Left Lateral (Crystal Rosa, RN) Datetime: 07/12/2016 20:07 Pushing: Urge to Push (Crystal Rosa, RN) Datetime: 07/12/2016 20:06 NBP Sys/Azeb/Mean (mmHg): 158 (QS system process) : 88 (QS system process) : 113 (QS system process) Pulse: 98 (QS system process) Temperature (F): 99.5 (Crystal Rosa, RN) Temperature (C): 37.5 (QS system process) LaborFlag: Antepartum (QS system process) Datetime: 07/12/2016 19:59 Monitor Mode: External; Palpation (Crystal Du Pont, RN) Frequency (min): 3-4 (Crystal Du Pont, RN) Quality: Moderate (Crystal Du Pont, RN) Duration (sec): 70-90 (Crystal Rosa, RN) Duration Criteria: Less than Two 120 Second Contractions (Crystal Du Pont, RN) Resting Tone (Palpate): Relaxed (Crystal Rosa, RN) Monitor Mode: External US (Crystal Rosa, RN) FHR Baseline Rate : 150 (Crystal Du Pont, RN) Variability: Moderate 6-25 bpm (Crystal Rosa, RN) Patient Position/Activity: Left Lateral (Crystal Du Pont, RN) Datetime: 07/12/2016 19:52 Antibiotics: Penicillin IV (Units) @ 2,500,000 (Crystal Rosa, RN) Datetime: 07/12/2016 19:50 NBP Sys/Azeb/Mean (mmHg): 124 (QS system process) : 67 (QS system process) : 89 (QS system process) Pulse: 92 (QS system process) LaborFlag: Antepartum (QS system process) Datetime: 07/12/2016 19:45 Monitor Mode: External; Palpation (Crystal Du Pont, RN) Frequency (min): 3-3.5 (Crystal Rosa, RN) Quality: Moderate (Crystal Du Pont, RN) Duration (sec): 80-90 (Crystal Rosa, RN) Duration Criteria: Less than Two 120 Second Contractions (Crystal Du Pont, RN) Resting Tone (Palpate): Relaxed (Crystal Du Pont, RN) Monitor Mode: External US (Crystal Roas, RN) FHR Baseline Rate : 150 (Crystal Rosa, RN) Variability: Moderate 6-25 bpm (Crystal Du Pont, RN) Accelerations: 15X15 (Crystal Rosa, RN) Patient Position/Activity: Left Tilt (Crystal Rosa, RN) Datetime: 07/12/2016 19:44 Monitor Interventions for FHR: Ultrasound Adjusted (Crystal Du Pont, RN) Datetime: 07/12/2016 19:41 Membrane Status: Bulging (Crystal Rosa, RN) Datetime: 07/12/2016 19:35 NBP Sys/Azeb/Mean (mmHg): 131 (QS system process) : 74 (QS system process) : 96 (QS system process) Pulse: 92 (QS system process) LaborFlag: Antepartum (QS system process) Datetime: 07/12/2016 19:30 Monitor Mode: External; Palpation (Crystal Du Pont, RN) Monitor Interventions for UA: [place] Adjusted (Crystal Du Pont, RN) Frequency (min): 2-4 (Crystal Du Pont, RN) Quality: Moderate to Strong (Crystal Rosa, RN) Duration (sec): 60-90 (Crystal Rosa, RN) Duration Criteria: Less than Two 120 Second Contractions (Crystal Du Pont, RN) Resting Tone (Palpate): Relaxed (Crystal Rosa, RN) Monitor Mode: External US (Crystal Du Pont, RN) FHR Baseline Rate : 150 (Crystal Du Pont, RN) Variability: Moderate 6-25 bpm (Crystal Du Pont, RN) Decelerations: Variable (Crystal Du Pont, RN) Patient Position/Activity: Left Lateral; Semi-Fowlers (Crystal Du Pont, RN) Datetime: 07/12/2016 19:22 NBP Sys/Azeb/Mean (mmHg): 128 (QS system process) : 60 (QS system process) : 87 (QS system process) Pulse: 85 (QS system process) LaborFlag: Antepartum (QS system process) Datetime: 07/12/2016 19:15 Monitor Mode: External; Palpation (Dylan Pierce RN) Frequency (min): 3-4 (Dylan Pierce RN) Quality: Moderate to Strong (Dylan Pierce RN) Duration (sec): 80-100 (Dylan Pierce RN) Resting Tone (Palpate): Relaxed (Dylan Pierce RN) Monitor Mode: External US (Dylan Pierce RN) FHR Baseline Rate : 150 (Dylan Pierce RN) Variability: Moderate 6-25 bpm (Dylan Pierce RN) Accelerations: 15X15 (Dylan Pierce RN) Decelerations: Early (Dylan Pierce RN) Level of Consciousness: Fully Conscious (Isamar Lee RN) Headache: Denies (Isamar Lee RN) Breath Sounds, Left: Clear and Equal (Isamar Lee RN) Breath Sounds, Right: Clear and Equal (Isamar Lee RN) Nausea/Vomiting: Denies (Isamar Lee RN) RUQ Epigastric Pain: Denies (Isamar Lee RN) IV/Blood Work: New IV Bag Hung (Annotations: LR 125ml/hr ) (Dylan Pierce RN) Communication: RN at Bedside; RN Reviewed Strip; Report Given to @ Shalom Lee RN (Dylan Pierce RN) Datetime: 07/12/2016 19:05 NBP Sys/Azeb/Mean (mmHg): 129 (QS system process) : 62 (QS system process) : 89 (QS system process) Pulse: 83 (QS system process) LaborFlag: Antepartum (QS system process) Datetime: 07/12/2016 19:00 Monitor Mode: External; Palpation (Dylan Pierce RN) Frequency (min): 2-4 (Dylan Pierce RN) Quality: Moderate (Dylan Pierce RN) Duration (sec): 80-90 (Dylan Pierce RN) Resting Tone (Palpate): Relaxed (Dylan Pierce RN) Monitor Mode: External US (Dylan Pierce RN) FHR Baseline Rate : 150 (Dylan Pierce RN) Variability: Moderate 6-25 bpm (Dylan Pierce RN) Accelerations: None (Dylan Pierce RN) Decelerations: None (Dylan Pierce RN) Communication: RN at Bedside; RN Reviewed Strip (Dylan Pierce RN)
[2016-07-13 08:40] LABS: HEMATOCRIT 32.4 % (36.0-47.0); HGB HCT DIFFERENCE 0.6; MEAN CORPUSCULAR HEMOGLOBIN 30.2 pg (27.0-33.4); MEAN CORPUSCULAR HGB CONC 34.1 g/dL (32.0-36.0); MEAN CORPUSCULAR VOLUME 89 fl (80-97); RED BLOOD COUNT 3.65 10^6/uL (3.72-5.28); RED CELL DISTRIBUTION WIDTH 12.6 % (11.5-14.0); WHITE BLOOD COUNT 16.6 10^3/uL (4.0-10.5)
[2016-07-13] MEDS: FERROUS SULFATE 325 MG TABLET PO SCH ×2 (09:38→17:40)
[2016-07-13] MEDS: FAMOTIDINE 20 MG TABLET PO SCH ×2 (09:38→21:55)
[2016-07-13] MEDS: PRENATAL VITAMIN W-O CA NO5/FE FUMARATE/FA CAPSULE PO SCH (09:38)
[2016-07-13] MEDS: DOCUSATE SODIUM 100 MG CAPSULE PO SCH ×2 (09:38→17:40)
[2016-07-13] MEDS: SENNOSIDES/DOCUSATE 8.6-50 MG 1 EACH TABLET PO SCH (09:39)
--- NOTE | 2016-07-13 12:27 | PDOC PROGRESS REPORT ---
Subjective-OB Subjective: Post Delivery Day: 1 26 year old. Denies any needs at this time, lochia is stable, pain is well controlled, voiding without difficulty. Physical Exam (OB) Vital Signs: Temp Pulse Resp BP Pulse Ox 97.7 F 71 16 113/70 99 07/13/16 07:58 07/13/16 07:58 07/13/16 07:58 07/13/16 07:58 07/13/16 07:58 Intake & Output 07/12/16 07/13/16 07/14/16 06:59 06:59 06:59 Intake Total 350 Output Total 550 Balance -550 350 Weight 91.8 kg - Lochia Lochia Amount: Scant < 10 ml Lochia Color: Rubra/Red - Abdomen Description: Tender Hernia Present: No Fundal Description: Firm, Midline Fundal Height: u/u - u/2 Objective-Diagnostic Laboratory: 07/13/16 08:20 07/13/16 08:20 WBC 16.6 H RBC 3.65 L Hgb 11.0 L Hct 32.4 L MCV 89 MCH 30.2 MCHC 34.1 RDW 12.6 Plt Count 247 Assessment and Plan(PN) - Assessment and Plan (1) Vaginal delivery Is this a current diagnosis for this admission?: YesPlan: routine care - Time Spent with Patient Time with patient: Less than 15 minutes Critical Time spent with patient: Less than 15 minutes Medications reviewed and adjusted accordingly: Yes - Disposition Anticipated Discharge: Home Within: within 24 hours
--- NOTE | 2016-07-13 18:01 | L&D General Admission ---
General Admit Datetime Report Generated by CPN: 07/13/2016 18:00 INFORMATION Patient Age: 26 (06/08/2016 16:27:QS system process) EDC: 07/16/2016 00:00 (06/08/2016 16:34:Leandra Harper RN) : 3 (06/08/2016 16:34:Leandra Harper RN) Para: 1 (06/08/2016 17:31:Leandra Harper RN) Term: 1 (06/08/2016 16:34:Leandra Harper RN) Spontaneous Abortions: 0 (06/08/2016 16:34:Eneida Solorzano RN) Induced Abortions: 0 (06/08/2016 16:34:Eneida Solorzano RN) Livin (06/08/2016 16:34:Leandra Harper RN) Cesareans: 0 (06/08/2016 16:34:Eneida Solorzano RN) VBACs: 0 (06/08/2016 16:34:Eneida Solorzano RN) Ectopic: 0 (06/08/2016 16:34:Eneida Solorzano RN) Multiple Births: 0 (06/08/2016 16:34:Eneida Solorzano RN) Baby, Number in Womb: 1 (06/08/2016 17:31:Leandra Harper RN) CARE Primary Hammer Adjuster: [facility] (06/08/2016 16:34:Leandra Harper RN) Adequate Care: Yes (06/08/2016 16:34:Eneida Solorzano RN) Prepregnancy Weight (lb): 170 (06/08/2016 16:34:Dylan Pierce RN) Prepregnancy Weight (kg): 77.3 (06/08/2016 16:34:QS system process) Height (in): 62 (07/13/2016 09:11:QS system process) ALLERGIES Medication Allergy: No (06/08/2016 16:34:Isamar Lee RN) Medication Allergies: No Known Allergies (06/08/2016) (06/08/2016 16:44:QS system process) Latex Allergy: No Latex Allergies (06/08/2016 16:34:Isamar Lee RN) Food Allergies: none (06/08/2016 16:34:Eneida Solorzano RN) Environmental Allergies: none (06/08/2016 16:34:Eneida Solorzano RN) COMMUNICATION Primary Language: Zimbabwean (06/08/2016 16:34:Leandra Harper RN) Medical Tx Preferred Language: Zimbabwean (06/08/2016 16:34:Eneida Solorzano RN) Communication Barrier(s): None (06/08/2016 16:34:Dylan Pierce RN) DEMOGRAPHICS Address: [address] [place] [id number] (06/08/2016 16:27:QS system process) Zipcode: [phone] (06/08/2016 16:27:QS system process) Home (06/08/2016 16:27:QS system process) N: [phone] (06/08/2016 16:27:QS system process) Next of Kin Name: ELI JOSEPH (06/08/2016 16:27:QS system process) Next of Kin (06/08/2016 16:27:QS system process) Next of Kin Relationship: SPO (06/08/2016 16:27:QS system process) Date of : 1990 (06/08/2016 16:27:QS system process) Marital Status: Single (06/08/2016 16:27:QS system process) Sex: Female (06/08/2016 16:27:QS system process) Race: (06/08/2016 16:27:QS system process) Ethnicity: Non- or (06/08/2016 16:27:QS system process) Methodist: Other (06/08/2016 16:27:QS system process) DRUG AND ALCOHOL USE Alcohol: No (06/08/2016 16:34:Isamar Lee RN) Cigarettes: Never Smoker. [id number] (06/08/2016 16:34:Isamar Lee RN) Marijuana: No (06/08/2016 16:34:Isamar Lee RN) Cocaine: No (06/08/2016 16:34:Isamar Lee RN) Other Illicit Drugs: No (06/08/2016 16:34:Isamar Lee RN) VACCINE HISTORY Influenza Vaccine: Yes (06/08/2016 16:34:Isamar Lee RN) Pneumococcal Vaccine: No (06/08/2016 16:34:Isamar Lee RN) Tetanus Vaccine: Uncertain (06/08/2016 16:34:Isamar Lee RN) Tdap Vaccine: Yes (06/08/2016 16:34:Leandra Harper RN) Tdap Date: 04/25/2016 (06/08/2016 16:34:Leandra Harper RN) Hepatitis B Vaccine: Uncertain (06/08/2016 16:34:Isamar Lee RN) Manufacturing Technology Analyst: [facility] (06/08/2016 16:34:Isamar Lee RN) Feeding Preference: Breast (06/08/2016 16:34:Isamar Lee RN) Benefit of Breast Feed Discussed: Yes (06/08/2016 16:34:Isamar Lee RN) Circumcision: N/A (06/08/2016 16:34:Isamar Lee RN) Classes Attended: No (06/08/2016 16:34:Isamar Lee RN) Tubal Ligation: No (06/08/2016 16:34:Isamar Lee RN) Tubal Authorization Signed: N/A (06/08/2016 16:34:Isamar Lee RN) Consent: N/A (06/08/2016 16:34:Isamar Lee RN) Consent Signed: N/A (06/08/2016 16:34:Isamar Lee RN) Pain Management Plans: Epidural (06/08/2016 16:34:Isamar Lee RN) Plans for Labor and Delivery: None (06/08/2016 16:34:Isamar Lee RN) Support Person: [facility] (06/08/2016 16:34:Isamar Lee RN) Support Person Relationship: (06/08/2016 16:34:Isamar Lee RN) Cultural/Spritual Practice: No (06/08/2016 16:34:Isamar Lee RN) Spir/Cult Dietary Needs: No (06/08/2016 16:34:Isamar Lee RN) LIVING SITUATION/DISCHARGE PLAN Living Arrangements: House (06/08/2016 16:34:Isamar Lee RN) Adequate Access to:: Electric; Heat; Refrigeration; Plumbing/Running water; Phone; Transportation (06/08/2016 16:34:Isamar Lee RN) WIC Program: [facility] (06/08/2016 16:34:Isamar Lee RN) Discharge Tube Building Machine Operator Person: [facility] (06/08/2016 16:34:Isamar Lee RN) Person to Help after Discharge: [facility] (06/08/2016 16:34:Isamar Lee RN) Currently Using Commun Resources: [facility] (06/08/2016 16:34:Isamar Lee RN) Outside Agency/Helmet Hat Sweatband Puncher: No (06/08/2016 16:34:Isamar Lee RN) Car Seat for Discharge: Yes (06/08/2016 16:34:Isamar Lee RN) Adoption Requested: No (06/08/2016 16:34:Isamar Lee RN) Pt Contact w/infant Post : N/A (06/08/2016 16:34:Isamar Lee RN) LABS Blood Type: AB Positive (06/08/2016 16:34:Isamar Lee RN) Antibody Screen: Negative (06/08/2016 16:34:Isamar Lee RN) Hemoglobin: 11.0 L (07/13/2016 08:20:QS system process) Hematocrit: 32.4 L (07/13/2016 08:20:QS system process) MCV: 89 (07/13/2016 08:20:QS system process) Group Beta Strep: Positive (06/08/2016 16:34:Isamar Lee RN) Gonorrhea: Negative (06/08/2016 16:34:Eneida Solorzano RN) Chlamydia: Negative (06/08/2016 16:34:Isamar Lee RN) RPR/VDRL: Nonreactive (06/08/2016 16:34:Eneida Solorzano RN) HIV Exposure Test: Negative (06/08/2016 16:34:Eneida Solorzano RN) HIV Results: negative (06/08/2016 16:34:Eneida Solorzano RN) Hepatitis B: Negative (06/08/2016 16:34:Eneida Solorzano RN) Rubella: Immune (06/08/2016 16:34:Isamar Lee RN) OB/PREVIOUS HISTORY Previous Procedures: Ultrasound (06/08/2016 16:34:Isamar Lee RN) Current Procedures: Ultrasound (06/08/2016 16:34:Isamar Lee RN) History of Previous : No (06/08/2016 16:34:Isamar Lee RN) History of Gestational Diabetes: Yes (06/08/2016 16:34:Isamar Lee RN) History of PIH: No (06/08/2016 16:34:Isamar Lee RN) History of Incompetent Cervix: No (06/08/2016 16:34:Iasmar Lee RN) History of Placenta Previa/Abrup: No (06/08/2016 16:34:Isamar Lee RN) History of Macrosomia: No (06/08/2016 16:34:Isamar Lee RN) History of IUGR: No (06/08/2016 16:34:Isamar Lee RN) History of Hemorrhage: No (06/08/2016 16:34:Isamar Lee RN) History of Loss/Stillborn: No (06/08/2016 16:34:Isamar Lee RN) History of : No (06/08/2016 16:34:Isamar Lee RN) History of D (Rh) Sensitization: No (06/08/2016 16:34:Isamar Lee RN) History Recurrent Loss/Stillborn: No (06/08/2016 16:34:Isamar Lee RN) History Depression/PP Depression: No (06/08/2016 16:34:Isamar Lee RN) History of Uterine Anomaly/CHRISTINE: No (06/08/2016 16:34:Isamar Lee RN) History of Infertility: No (06/08/2016 16:34:Isamar Lee RN) History of ART Treatment: No (06/08/2016 16:34:Isamar Lee RN) History of CHRISTINE: No (06/08/2016 16:34:Isamar Lee RN) Comments Obstetrical History: G1- baby girl, 7 lb 8 oz G2- G3- current (06/08/2016 16:34:Isamar Lee RN) MEDICAL HISTORY Med Hx Diabetes: No (06/08/2016 16:34:Isamar Lee RN) Diabetes Type: Gestational Diabetes (06/08/2016 16:34:Isamar Lee RN) Med Hx Hypertension: No (06/08/2016 16:34:Isamar Lee RN) Med Hx Heart Disease: No (06/08/2016 16:34:Isamar Lee RN) Med Hx Autoimmune Disorder: No (06/08/2016 16:34:Isamar Lee RN) Med Hx Kidney Disease/UTI: No (06/08/2016 16:34:Isamar Lee RN) Med Hx Neurologic/Epilepsy: No (06/08/2016 16:34:Isamar Lee RN) Med Hx Psychiatric Disorders: No (06/08/2016 16:34:Isamar Lee RN) Med Hx Hepatitis/Liver Disease: No (06/08/2016 16:34:Ismaar Lee RN) Med Hx Varicosities/Phlebitis: No (06/08/2016 16:34:Isamar Lee RN) Med Hx Thyroid Dysfunction: No (06/08/2016 16:34:Isamar Lee RN) Med Hx Trauma/Violence: No (06/08/2016 16:34:Isamar Lee RN) Med Hx Blood Transfusion: No (06/08/2016 16:34:Isamar Lee RN) Med Hx Pulmonary (Asthma,TB): No (06/08/2016 16:34:Isamar Lee RN) Med Hx Breast: No (06/08/2016 16:34:Isamar Lee RN) Med 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 (06/08/2016 16:34:Isamar Lee RN) Med Hx Hospitalization/Surgery: Yes (06/08/2016 16:34:Isamar Lee RN) Med Hx Anesthetic Complications: No (06/08/2016 16:34:Isamar Lee RN) Med Hx Abnormal Pap Smear: No (06/08/2016 16:34:Isamar Lee RN) Other Medical Diseases: No (06/08/2016 16:34:Isamar Lee RN) Med Hx Significant Family Hx: No (06/08/2016 16:34:Isamar Lee RN) Details of Med/Surg Hx: ACL repair 2010 (06/08/2016 16:34:Isamar Lee RN) INFECTIOUS HISTORY Inf Hx Gonorrhea: No (06/08/2016 16:34:Isamar Lee RN) Inf Hx Chlamydia: No (06/08/2016 16:34:Isamar Lee RN) Inf Hx Syphilis: No (06/08/2016 16:34:Isamar Lee RN) Inf Hx HIV/AIDS: No (06/08/2016 16:34:Isamar Lee RN) Inf Hx Human Papilloma Virus: No (06/08/2016 16:34:Isamar Lee RN) Inf Hx Pt/Partner Genital Herpes: No (06/08/2016 16:34:Isamar Lee RN) Inf Hx Tuberculosis/Exposure: No (06/08/2016 16:34:Isamar Lee RN) Inf Hx Hepatitis B,C: No (06/08/2016 16:34:Isamar Lee RN) Inf Hx Rash or Viral Illness: No (06/08/2016 16:34:Isamar Lee RN) GENETIC HISTORY Gen Hx Age >=35 at RACHELLE: No (06/08/2016 16:34:Isamar Lee RN) Gen Hx Thalassemia: No (06/08/2016 16:34:Isamar Lee RN) Gen Hx Congenital Heart Defect: No (06/08/2016 16:34:Isamar Lee RN) Gen Hx Neural Tube Defect: No (06/08/2016 16:34:Isamar Lee RN) Gen Hx Down's Syndrome: No (06/08/2016 16:34:Isamar Lee RN) Gen Hx Yony-Sachs: No (06/08/2016 16:34:Isamar Lee RN) Gen Hx Alva: No (06/08/2016 16:34:Isamar Lee RN) Gen Hx Familial Dysautonomia: No (06/08/2016 16:34:Isamar Lee RN) Gen Hx Sickle Cell Disease/Trait: No (06/08/2016 16:34:Isamar Lee RN) Gen Hx Hemophilia/Blood Disorder: No (06/08/2016 16:34:Isamar Lee RN) Gen Hx Muscular Dystrophy: No (06/08/2016 16:34:Isamar Lee RN) Gen Hx Cystic Fibrosis: No (06/08/2016 16:34:Isamar Lee RN) Gen Hx [place] Chorea: No (06/08/2016 16:34:Isamar Lee RN) Gen Hx Mental Retardation/Autism: No (06/08/2016 16:34:Isamar Lee RN) Gen Hx Tested for Fragile X: No (06/08/2016 16:34:Isamar Lee RN) Gen Hx Other Inher/Chromosomal: No (06/08/2016 16:34:Isamar Lee RN) Gen Hx Maternal Metabolic DO: No (06/08/2016 16:34:Isamar Lee RN) Gen Hx Pt Father or FOB Defect: No (06/08/2016 16:34:Isamar Lee RN) Gen Hx Other Genetic History: No (06/08/2016 16:34:Isamar Lee RN) Gen Hx Drugs/Meds since LMP: No (06/08/2016 16:34:Isamar Lee RN)
[2016-07-14] MEDS: IBUPROFEN 800 MG TABLET PO SCH (05:59)
--- NOTE | 2016-07-14 06:01 | L&D General Admission ---
General Admit Datetime Report Generated by CPN: 07/14/2016 06:00 INFORMATION Patient Age: 26 (06/08/2016 16:27:QS system process) EDC: 07/16/2016 00:00 (06/08/2016 16:34:Leandra Harper RN) : 3 (06/08/2016 16:34:Leandra Harper RN) Para: 1 (06/08/2016 17:31:Leandra Harper RN) Term: 1 (06/08/2016 16:34:Leandra Harper RN) Spontaneous Abortions: 0 (06/08/2016 16:34:Eneida Solorzano RN) Induced Abortions: 0 (06/08/2016 16:34:Eneida Solorzano RN) Livin (06/08/2016 16:34:Leandra Harper RN) Cesareans: 0 (06/08/2016 16:34:Eneida Solorzano RN) VBACs: 0 (06/08/2016 16:34:Eneida Solorzano RN) Ectopic: 0 (06/08/2016 16:34:Eneida Solorzano RN) Multiple Births: 0 (06/08/2016 16:34:Eneida Solorzano RN) Baby, Number in Womb: 1 (06/08/2016 17:31:Leandra Harper RN) CARE Primary Spotlight Operator: [facility] (06/08/2016 16:34:Leandra Harper RN) Adequate Care: Yes (06/08/2016 16:34:Eneida Solorzano RN) Prepregnancy Weight (lb): 170 (06/08/2016 16:34:Dylan Pierce RN) Prepregnancy Weight (kg): 77.3 (06/08/2016 16:34:QS system process) Height (in): 62 (07/13/2016 09:11:QS system process) ALLERGIES Medication Allergy: No (06/08/2016 16:34:Isamar Lee RN) Medication Allergies: No Known Allergies (06/08/2016) (06/08/2016 16:44:QS system process) Latex Allergy: No Latex Allergies (06/08/2016 16:34:Isamar Lee RN) Food Allergies: none (06/08/2016 16:34:Eneida Solorzano RN) Environmental Allergies: none (06/08/2016 16:34:Eneida Solorzano RN) COMMUNICATION Primary Language: Tunisian (06/08/2016 16:34:Leandra Harper RN) Medical Tx Preferred Language: Tunisian (06/08/2016 16:34:Eneida Solorzano RN) Communication Barrier(s): None (06/08/2016 16:34:Dylan Pierce RN) DEMOGRAPHICS Address: [address] [place] [phone] (06/08/2016 16:27:QS system process) Zipcode: [phone] (06/08/2016 16:27:QS system process) Home (06/08/2016 16:27:QS system process) N: [phone] (06/08/2016 16:27:QS system process) Next of Kin Name: ELI JOSEPH (06/08/2016 16:27:QS system process) Next of Kin (06/08/2016 16:27:QS system process) Next of Kin Relationship: SPO (06/08/2016 16:27:QS system process) Date of : 1990 (06/08/2016 16:27:QS system process) Marital Status: Single (06/08/2016 16:27:QS system process) Sex: Female (06/08/2016 16:27:QS system process) Race: (06/08/2016 16:27:QS system process) Ethnicity: Non- or (06/08/2016 16:27:QS system process) Mormonism: Other (06/08/2016 16:27:QS system process) DRUG AND ALCOHOL USE Alcohol: No (06/08/2016 16:34:Isamar Lee RN) Cigarettes: Never Smoker. [id number] (06/08/2016 16:34:Isamar Lee RN) Marijuana: No (06/08/2016 16:34:Isamar Lee RN) Cocaine: No (06/08/2016 16:34:Isamar Lee RN) Other Illicit Drugs: No (06/08/2016 16:34:Isamar Lee RN) VACCINE HISTORY Influenza Vaccine: Yes (06/08/2016 16:34:Isamar Lee RN) Pneumococcal Vaccine: No (06/08/2016 16:34:Isamar Lee RN) Tetanus Vaccine: Uncertain (06/08/2016 16:34:Isamar Lee RN) Tdap Vaccine: Yes (06/08/2016 16:34:Leandra Harper RN) Tdap Date: 04/25/2016 (06/08/2016 16:34:Leandra Harper RN) Hepatitis B Vaccine: Uncertain (06/08/2016 16:34:Isamar Lee RN) Raw Mill Operator: [facility] (06/08/2016 16:34:Isamar Lee RN) Feeding Preference: Breast (06/08/2016 16:34:Isamar Lee RN) Benefit of Breast Feed Discussed: Yes (06/08/2016 16:34:Isamar Lee RN) Circumcision: N/A (06/08/2016 16:34:Isamar Lee RN) Classes Attended: No (06/08/2016 16:34:Isamar Lee RN) Tubal Ligation: No (06/08/2016 16:34:Isamar Lee RN) Tubal Authorization Signed: N/A (06/08/2016 16:34:Isamar Lee RN) Consent: N/A (06/08/2016 16:34:Isamar Lee RN) Consent Signed: N/A (06/08/2016 16:34:Isamar Lee RN) Pain Management Plans: Epidural (06/08/2016 16:34:Isamar Lee RN) Plans for Labor and Delivery: None (06/08/2016 16:34:Isamar Lee RN) Support Person: [facility] (06/08/2016 16:34:Isamar Lee RN) Support Person Relationship: (06/08/2016 16:34:Isamar Lee RN) Cultural/Spritual Practice: No (06/08/2016 16:34:Isamar Lee RN) Spir/Cult Dietary Needs: No (06/08/2016 16:34:Isamar Lee RN) LIVING SITUATION/DISCHARGE PLAN Living Arrangements: House (06/08/2016 16:34:Isamar Lee RN) Adequate Access to:: Electric; Heat; Refrigeration; Plumbing/Running water; Phone; Transportation (06/08/2016 16:34:Isamar Lee RN) WIC Program: [facility] (06/08/2016 16:34:Isamar Lee RN) Discharge Practice Business Asst Person: [facility] (06/08/2016 16:34:Isamar Lee RN) Person to Help after Discharge: [facility] (06/08/2016 16:34:Isamar Lee RN) Currently Using Commun Resources: [facility] (06/08/2016 16:34:Isamar Lee RN) Outside Agency/Spray Drier: No (06/08/2016 16:34:Isamar Lee RN) Car Seat for Discharge: Yes (06/08/2016 16:34:Isamar Lee RN) Adoption Requested: No (06/08/2016 16:34:Isamar Lee RN) Pt Contact w/infant Post : N/A (06/08/2016 16:34:Isamar Lee RN) LABS Blood Type: AB Positive (06/08/2016 16:34:Isamar Lee RN) Antibody Screen: Negative (06/08/2016 16:34:Isamar Lee RN) Hemoglobin: 11.0 L (07/13/2016 08:20:QS system process) Hematocrit: 32.4 L (07/13/2016 08:20:QS system process) MCV: 89 (07/13/2016 08:20:QS system process) Group Beta Strep: Positive (06/08/2016 16:34:Isamar Lee RN) Gonorrhea: Negative (06/08/2016 16:34:Eneida Solorzano RN) Chlamydia: Negative (06/08/2016 16:34:Isamar Lee RN) RPR/VDRL: Nonreactive (06/08/2016 16:34:Eneida Solorzano RN) HIV Exposure Test: Negative (06/08/2016 16:34:Eneida Solorzano RN) HIV Results: negative (06/08/2016 16:34:Eneida Solorzano RN) Hepatitis B: Negative (06/08/2016 16:34:Eneida Solorzano RN) Rubella: Immune (06/08/2016 16:34:Isamar Lee RN) OB/PREVIOUS HISTORY Previous Procedures: Ultrasound (06/08/2016 16:34:Isamar Lee RN) Current Procedures: Ultrasound (06/08/2016 16:34:Isamar Lee RN) History of Previous : No (06/08/2016 16:34:Isamar Lee RN) History of Gestational Diabetes: Yes (06/08/2016 16:34:Isamar Lee RN) History of PIH: No (06/08/2016 16:34:Isamar Lee RN) History of Incompetent Cervix: No (06/08/2016 16:34:Isamar Lee RN) History of Placenta Previa/Abrup: No (06/08/2016 16:34:Isamar Lee RN) History of Macrosomia: No (06/08/2016 16:34:Isamar Lee RN) History of IUGR: No (06/08/2016 16:34:Isamar Lee RN) History of Hemorrhage: No (06/08/2016 16:34:Isamar Lee RN) History of Loss/Stillborn: No (06/08/2016 16:34:Isamar Lee RN) History of : No (06/08/2016 16:34:Isamar Lee RN) History of D (Rh) Sensitization: No (06/08/2016 16:34:Isamar Lee RN) History Recurrent Loss/Stillborn: No (06/08/2016 16:34:Isamar Lee RN) History Depression/PP Depression: No (06/08/2016 16:34:Isamar Lee RN) History of Uterine Anomaly/CHRISTINE: No (06/08/2016 16:34:Isamar Lee RN) History of Infertility: No (06/08/2016 16:34:Isamar Lee RN) History of ART Treatment: No (06/08/2016 16:34:Isamar Lee RN) History of CHRISTINE: No (06/08/2016 16:34:Isamar Lee RN) Comments Obstetrical History: G1- baby girl, 7 lb 8 oz G2- G3- current (06/08/2016 16:34:Isamar Lee RN) MEDICAL HISTORY Med Hx Diabetes: No (06/08/2016 16:34:Isamar Lee RN) Diabetes Type: Gestational Diabetes (06/08/2016 16:34:Isamar Lee RN) Med Hx Hypertension: No (06/08/2016 16:34:Isamar Lee RN) Med Hx Heart Disease: No (06/08/2016 16:34:Isamar Lee RN) Med Hx Autoimmune Disorder: No (06/08/2016 16:34:Isamar Lee RN) Med Hx Kidney Disease/UTI: No (06/08/2016 16:34:Isamar Lee RN) Med Hx Neurologic/Epilepsy: No (06/08/2016 16:34:Isamar Lee RN) Med Hx Psychiatric Disorders: No (06/08/2016 16:34:Isamar Lee RN) Med Hx Hepatitis/Liver Disease: No (06/08/2016 16:34:Isamar Lee RN) Med Hx Varicosities/Phlebitis: No (06/08/2016 16:34:Isamar Lee RN) Med Hx Thyroid Dysfunction: No (06/08/2016 16:34:Isamar Lee RN) Med Hx Trauma/Violence: No (06/08/2016 16:34:Isamar Lee RN) Med Hx Blood Transfusion: No (06/08/2016 16:34:Isamar Lee RN) Med Hx Pulmonary (Asthma,TB): No (06/08/2016 16:34:Isamar Lee RN) Med Hx Breast: No (06/08/2016 16:34:Isamar Lee RN) Med Hx PEST CONTROL TECHNICIAN Surgery: No (06/08/2016 16:34:Isamar Lee RN) Med Hx Hospitalization/Surgery: Yes (06/08/2016 16:34:Isamar Lee RN) Med Hx Anesthetic Complications: No (06/08/2016 16:34:Isamar Lee RN) Med Hx Abnormal Pap Smear: No (06/08/2016 16:34:Isamar Lee RN) Other Medical Diseases: No (06/08/2016 16:34:Isamar Lee RN) Med Hx Significant Family Hx: No (06/08/2016 16:34:Isamar Lee RN) Details of Med/Surg Hx: ACL repair 2010 (06/08/2016 16:34:Isamar Lee RN) INFECTIOUS HISTORY Inf Hx Gonorrhea: No (06/08/2016 16:34:Isamar Lee RN) Inf Hx Chlamydia: No (06/08/2016 16:34:Isamar Lee RN) Inf Hx Syphilis: No (06/08/2016 16:34:Isamar Lee RN) Inf Hx HIV/AIDS: No (06/08/2016 16:34:Isamar Lee RN) Inf Hx Human Papilloma Virus: No (06/08/2016 16:34:Isamar Lee RN) Inf Hx Pt/Partner Genital Herpes: No (06/08/2016 16:34:Isamar Lee RN) Inf Hx Tuberculosis/Exposure: No (06/08/2016 16:34:Isamar Lee RN) Inf Hx Hepatitis B,C: No (06/08/2016 16:34:Isamar Lee RN) Inf Hx Rash or Viral Illness: No (06/08/2016 16:34:Isamar Lee RN) GENETIC HISTORY Gen Hx Age >=35 at RACHELLE: No (06/08/2016 16:34:Isamar Lee RN) Gen Hx Thalassemia: No (06/08/2016 16:34:Isamar Lee RN) Gen Hx Congenital Heart Defect: No (06/08/2016 16:34:Isamar Lee RN) Gen Hx Neural Tube Defect: No (06/08/2016 16:34:Isamar Lee RN) Gen Hx Down's Syndrome: No (06/08/2016 16:34:Isamar Lee RN) Gen Hx Yony-Sachs: No (06/08/2016 16:34:Isamar Lee RN) Gen Hx Alva: No (06/08/2016 16:34:Isamar Lee RN) Gen Hx Familial Dysautonomia: No (06/08/2016 16:34:Isamar Lee RN) Gen Hx Sickle Cell Disease/Trait: No (06/08/2016 16:34:Isamar Lee RN) Gen Hx Hemophilia/Blood Disorder: No (06/08/2016 16:34:Isamar Lee RN) Gen Hx Muscular Dystrophy: No (06/08/2016 16:34:Isamar Lee RN) Gen Hx Cystic Fibrosis: No (06/08/2016 16:34:Isamar Lee RN) Gen Hx [place] Chorea: No (06/08/2016 16:34:Isamar Lee RN) Gen Hx Mental Retardation/Autism: No (06/08/2016 16:34:Iasmar Lee RN) Gen Hx Tested for Fragile X: No (06/08/2016 16:34:sIamar Lee RN) Gen Hx Other Inher/Chromosomal: No (06/08/2016 16:34:Isamar Lee RN) Gen Hx Maternal Metabolic DO: No (06/08/2016 16:34:Isamar Lee RN) Gen Hx Pt Father or FOB Defect: No (06/08/2016 16:34:Isamar Lee RN) Gen Hx Other Genetic History: No (06/08/2016 16:34:Isamar Lee RN) Gen Hx Drugs/Meds since LMP: No (06/08/2016 16:34:Isamar Lee RN)
--- NOTE | 2016-07-14 06:16 | L&D Care Plan ---
LD CARE PLANS Datetime Report Generated by CPN: 07/14/2016 06:15 Datetime: 07/11/2016 21:09 Pain State: Risk For (Anh Drake RN) Related To: Labor and Delivery Process; Disease Process (Anh Drake RN) Goal(s): Patients Pain will be Assessed and Managed; Patient will Verbalize Adequate Relief of Pain or the Ability to [place] with Current Pain (Anh Drake RN) Interventions: Assess Pain Severity on Scale of 0 (None) to 5 (Severe); Assess Type, Location and Intensity of Pain Each Time Client Reports Discomfort and Notify Provider if Unusal Pain Develops; Encourage Proper Breathing and Relaxation Techniques; Offer Alternatives Such as Repositioning, Calm Environment, Massages, Diversional Activities, Ice Pack, Splinting, and Ambulation; Administer Analgesics as Ordered; Assist with Epidural Placement as Appropriate; Evaluate Therapeutic Effectiveness of Medication and Treatments (Anh Drake RN) Outcome: Patient will Report Absence or Relief of Pain Consistent with Established Pain Goal (Anh Drake RN) Outcome: Patient will have a Decrease in Signs and Symptoms of Discomfort (Anh Drake RN) Outcome: Pain will be Controlled During Procedures (Anh Drake RN) Anxiety State: Risk For (Anh Drake RN) Related To: Labor and Delivery Process; Fear of Unknown; Situational Crisis (Anh Drake RN) Goal(s): Patient will have Decreased Anxiety and be able to Function at Acceptable Levels (Anh Drake RN) Interventions: Assess Verbal and Nonverbal Behavioral Indicators of Anxiety; Assist Patient to Identify and Verbalize Symptoms of Anxiety; Identify and Demonstrate Techniques to Control Anxiety; Assist Patient with Coping Mechanisms to Manage Anxiety; Provide Theraputic Touch for the Patient; Explain to Patient, Using a Calm Reassuring Approach and Nonmedical Terms, All Activities, Procedures, and Concerns; Instruct Patient and Family about Post Discharge Care, Limitations, Symptoms to Report and Resources Available (Anh Drake RN) Outcome: Patient will Identify, Verbalize and Demonstrate Techniques to Control Anxiety (Anh Drake RN) Outcome: Patient's Posture, Facial Expressions, Gestures and Activity Level will Reflect Decreased Anxiety (Anh Drake RN) Outcome: Patient will Verbalize a Sense of Control and/or Acceptance of the Situation (Anh Drake RN) Outcome: Patient will Identify and Utilize Support Person (Anh Drake RN) Knowledge Deficit State: Risk For (Anh Drake RN) Related To: Impending Alterations in Family Dynamics (Anh Drake RN) Goal(s): Patient will Accurately Verbalize Understanding of Plan of Care and Treatment; Patient and Family will Accurately Verbalize Understanding of the Disease Process (Anh Drake RN) Interventions: Assess Motivation and Willingness of Patient/Family to Learn; Assess Preferred Learning Mode: One to One Instruction, Reading, Videos, Group Discussion or Demonstration; Assess Barriers to Learning: Pain, Emotional State, Language Barrier, Cognitive Impairment, Visual or Hearing Deficits; Assess Patient and Family Knowledge of Disease Process, Medications and Treatment; Discuss Therapy and/or Treatment Options, Describe Rationale Behind Management, Therapy and Treatment Recommendations; Instruct Patient and Family on Signs and Symptoms to Report; Instruct Patient and Family on Medication Effects and Side Effects; Provide Appropriate and Timely Education Using Multiple Techniques; Provide Patient and Family with Support Group Information and Resources; Give Clear and Thorough Explanations and Demonstrations (Anh Drake RN) Infection State: Risk For (Anh Drake RN) Related To: Prolonged Labor or Induction (Anh Drake RN) Goal(s): The Patient will be Free of Infection, Vital Signs Stable and Lab Work within Normal Parameters (Anh Drake RN) Interventions: Instruct and Reinforce Proper Handwashing, Hygiene, and Care Techniques to Patient and Family; Monitor Vital Signs; Monitor Patient for the Following Signs of Infection: Fever, Abdominal Tenderness, Unusual Discharge; Monitor Aminiotic Fluid, Urine and Lochia for Color and Odor; Observe Wounds, Incisions and Invasive Line Sites for Redness, Drainage and Edema; Assess IV Sites per Hospital Policy; Monitor Lab and Test Results and Notify Provider of Abnormal Findings; Assess Nutritional Status and Promote Good Nutrition (Anh Drake RN) Outcome: Patient will Remain Free of Infection (Anh Drake RN) Outcome: Infection will be Recognized Early to Allow for Prompt Treatment (Anh Drake RN) Outcome: Patient will have Vital Signs Within Expected Range (Anh Drake RN) Fluid Volume State: Risk For (Anh Drake RN) Related To: Prolonged Labor or Induction; Hemorrhage (Anh Drake RN) Goal(s): Patient will Achieve and Maintain a Balanced Fluid Volume Status; Hemodynamically Stable (Anh Drake RN) Interventions: Monitor Vital Signs; Auscultate Breath Sounds; Monitor Patient for Skin Turgor, Mucous Membranes, Dry Skin, Weakness, Headaches and Confusion; Provide Oral Fluids as Ordered; Initiate and Maintain Intravenous Fluids as Ordered; Monitor Intake and Output as Indicated Per Patient Status; Accurately Measure Blood Loss; Monitor Lab and Test Results as Obtained and Notify Provider of Abnormal Findings; Monitor Patient's Weight (Anh Drake RN) Outcome: Patient will have Clear Lung Sounds (Anh Drake RN) Outcome: Patient will have Vital Signs within Expected Range (Anh Drake RN) Outcome: Urine Output will be within Expected Range (Anh Drake RN) Outcome: Patient will have Minimal Generalized or Upper Extremity Edema (Ahn Drake RN) Injury State: Risk For (Anh Drake RN) Related To: Labor and Delivery Process; Anesthesia (Anh Drake RN) Goal(s): Patient will Remain Free from Injury (Anh Drake RN) Interventions: Monitoring as per Hospital Protocol; Assess Neurological Status; Perform Risk Assessment of Patients with Induction and ; Perform Fall Risk Assessment and Prevention per Hospital Protocol; Perform DVT Risk Assessment and Prophylaxis per Hospital Protocol; Ensure that Oxygen, Suction, and Resuscitation Medications and Equipment are Readily Available; Confirm Patient ID Prior to Procedure(s) and Medication Administration per Hospital Policy (Anh Drake RN) Outcome: Successful Fall Risk Prevention (Anh Drake RN) Outcome: Patient will Deliver Infant without Adverse Sequela (Anh Drake RN) Outcome: Patient's Neurological Status will Remain Stable (Anh Drake RN)
[2016-07-14 08:42] VITALS: BP 120/60
[2016-07-14] MEDS: FAMOTIDINE 20 MG TABLET PO SCH (09:35)
[2016-07-14] MEDS: FERROUS SULFATE 325 MG TABLET PO SCH (09:35)
[2016-07-14] MEDS: DOCUSATE SODIUM 100 MG CAPSULE PO SCH (09:35)
[2016-07-14] MEDS: PRENATAL VITAMIN W-O CA NO5/FE FUMARATE/FA CAPSULE PO SCH (09:35)
[2016-07-14] MEDS: SENNOSIDES/DOCUSATE 8.6-50 MG 1 EACH TABLET PO SCH (09:35)
--- NOTE | 2016-07-14 11:56 | PDOC DISCHARGE SUMMARY ---
Final Diagnosis Discharge Date: 07/14/16 - Final Diagnosis (1) Vaginal delivery Is this a current diagnosis for this admission?: Yes (2) Gestational diabetes Is this a current diagnosis for this admission?: Yes Discharge Data - Discharge Medication Home Medications: Docusate Sodium [Colace 100 mg Capsule] 100 mg PO BID #60 capsule 07/14/16 Ibuprofen [Motrin 800 mg Tablet] 800 mg PO Q8 #60 tablet 07/14/16 Gestational Age: 39.3 Reason(s) for Admission: Induction of Labor, Group B Strep Positive Procedures: NST Intrapartum Procedure(s): Spontaneous Vaginal Delivery - Data Baby 1 Female at 1 minute: 9 at 5 minutes: 9 Weight: 3450 kg Home with Mother: Yes Complications: No - Diagnosis Test Laboratory: Temp Pulse Resp BP Pulse Ox 97.6 F 59 L 16 120/60 100 07/14/16 10:05 07/14/16 10:05 07/14/16 10:05 07/14/16 08:09 07/14/16 10:05 07/11/16 07/11/16 07/13/16 20:30 20:49 08:20 RBC 3.65 L 3.65 L Hgb 11.1 L 11.0 L Hct 32.4 L 32.4 L Urine Opiates Screen NEGATIVE - Discharge information/Instructions Discharge Activity: Activity As Tolerated, No Lifting Over 10 Pounds, Pelvic Rest, No tub bath Discharge Diet: Regular Disposition: HOME, SELF-CARE Follow up with: [facility] in: 4, Weeks
--- NOTE | 2016-07-16 15:20 | Admission Physical ---
Datetime Report Generated by CPN: 07/16/2016 15:20 CURRENT ADMISSION Chief Complaint: Scheduled Induction of Labor Indication for Induction: Maternal Diabetes Admit Plan: Admit to Unit ALLERGIES Medication Allergies: No Medication Allergies: No Known Allergies (06/08/2016) Latex: No Latex Allergies Food Allergies: none Environmental Allergies: none OBSTETRICAL HISTORY EDC: 07/16/2016 00:00 : 3 Para: 1 Para: 1 Term: 1 SAB: 0 IAB: 0 Ectopic: 0 Livin Cesareans: 0 VBACs: 0 Multiple Births: 0 Gestational Diabetes: Yes Rh Sensitization: No Incompetent Cervix: No CHRISTINE: No Infertility: No ART Treatment: No Uterine Anomaly: No IUGR: No Hx Previous C/S: No Macrosomia: No Hx Loss/Stillborn: No PIH: No Hx : No Placenta Previa/Abruption: No Depression/PP Depression: No PTL/PROM: No Post Hemorrhage: No Current Procedures: Ultrasound Obstetrical History Comments: G1- baby girl, 7 lb 8 oz G2- G3- current SEE RECORDS Alcohol: No Marijuana : No Cocaine: No Other Illicit Drugs: No Cigarettes: Never Smoker. [id number] MEDICAL HISTORY Diabetes: No Diabetes Type: Gestational Diabetes Blood Transfusion: No Pulmonary Disease (Asthma, TB): No Breast Disease: No Hypertension: No Rivet Thrower Surgery: No Heart Disease: No Hosp/Surgery: Yes Autoimmune Disorder: No Anesthetic Complications: No Kidney Disease: No Abnormal Pap Smear: No Neuro/Epilepsy: No Psychiatric Disorders: No Other Medical Diseases: No Hepatitis/Liver Disease: No Significant Family History: No Varicosities/Phlebitis: No Trauma/Violence : No Thyroid Dysfunction: No Medical History Comments: ACL repair 2010 INFECTIOUS HISTORY Gonorrhea: No Genital Herpes: No Chlamydia: No Tuberculosis: No Syphilis: No Hepatitis: No HIV/AIDS Exposure: No Rash or Viral Illness: No HPV: No PHYSICAL EXAM General: Normal HEENT: Normal Neurologic: Normal Thyroid: Normal Heart: Normal Lungs: Normal Breast: Deferred Back: Normal Abdomen: Normal Genitourinary Exam: Normal Extremities: Normal DTRs: Normal Pelvic Type: Adequate Vital Signs: Reviewed VAGINAL EXAM Dilatation: 1 Effacement: 25 Station: -3 FETUS A EGA: 39.2 Monitoring: External US FHR- Baseline: 120 Variability: Moderate 6-25bpm Decelerations: None FHR Category: Category I Presentation: Vertex Admit Comment: 7-8 lbs PLANS FOR LABOR AND DELIVERY Labor and Delivery: None Pain Management: Epidural Feeding Preference: Breast Benefit of Breast Feed Discussed: Yes Circumcision: N/A
--- NOTE | 2016-07-17 06:00 | L&D General Admission ---
General Admit Datetime Report Generated by CPN: 07/17/2016 06:00 INFORMATION Patient Age: 26 (06/08/2016 16:27:QS system process) EDC: 07/16/2016 00:00 (06/08/2016 16:34:Leandra Harper RN) : 3 (06/08/2016 16:34:Leandra Harper RN) Para: 1 (06/08/2016 17:31:Leandra Harper RN) Term: 1 (06/08/2016 16:34:Leandra Harper RN) Spontaneous Abortions: 0 (06/08/2016 16:34:Eneida Solorzano RN) Induced Abortions: 0 (06/08/2016 16:34:Eneida Solorzano RN) Livin (06/08/2016 16:34:Leandra Harper RN) Cesareans: 0 (06/08/2016 16:34:Eneida Solorzano RN) VBACs: 0 (06/08/2016 16:34:Eneida Solorzano RN) Ectopic: 0 (06/08/2016 16:34:Eneida Solorzano RN) Multiple Births: 0 (06/08/2016 16:34:Eneida Solorzano RN) Baby, Number in Womb: 1 (06/08/2016 17:31:Leandra Harper RN) CARE Primary Braille Operator: [facility] (06/08/2016 16:34:Leandra Harper RN) Adequate Care: Yes (06/08/2016 16:34:Eneida Solorzano RN) Prepregnancy Weight (lb): 170 (06/08/2016 16:34:Dylan Pierce RN) Prepregnancy Weight (kg): 77.3 (06/08/2016 16:34:QS system process) Height (in): 62 (07/14/2016 11:56:QS system process) ALLERGIES Medication Allergy: No (06/08/2016 16:34:Isamar Lee RN) Medication Allergies: No Known Allergies (06/08/2016) (06/08/2016 16:44:QS system process) Latex Allergy: No Latex Allergies (06/08/2016 16:34:Isamar Lee RN) Food Allergies: none (06/08/2016 16:34:Eneida Solorzano RN) Environmental Allergies: none (06/08/2016 16:34:Eneida Solorzano RN) COMMUNICATION Primary Language: Egyptian (06/08/2016 16:34:Leandra Harper RN) Medical Tx Preferred Language: Egyptian (06/08/2016 16:34:Eneida Solorzano RN) Communication Barrier(s): None (06/08/2016 16:34:Dylan Pierce RN) DEMOGRAPHICS Address: [address] [place] [phone] (06/08/2016 16:27:QS system process) Zipcode: [phone] (06/08/2016 16:27:QS system process) Home (06/08/2016 16:27:QS system process) N: [phone] (06/08/2016 16:27:QS system process) Next of Kin Name: ELI JOSEPH (06/08/2016 16:27:QS system process) Next of Kin (06/08/2016 16:27:QS system process) Next of Kin Relationship: SPO (06/08/2016 16:27:QS system process) Date of : 1990 (06/08/2016 16:27:QS system process) Marital Status: Single (06/08/2016 16:27:QS system process) Sex: Female (06/08/2016 16:27:QS system process) Race: (06/08/2016 16:27:QS system process) Ethnicity: Non- or (06/08/2016 16:27:QS system process) Mormonism: Other (06/08/2016 16:27:QS system process) DRUG AND ALCOHOL USE Alcohol: No (06/08/2016 16:34:Isamar Lee RN) Cigarettes: Never Smoker. [id number] (06/08/2016 16:34:Isamar Lee RN) Marijuana: No (06/08/2016 16:34:Isamar Lee RN) Cocaine: No (06/08/2016 16:34:Isamar Lee RN) Other Illicit Drugs: No (06/08/2016 16:34:Isamar Lee RN) VACCINE HISTORY Influenza Vaccine: Yes (06/08/2016 16:34:Isamar Lee RN) Pneumococcal Vaccine: No (06/08/2016 16:34:Isamar Lee RN) Tetanus Vaccine: Uncertain (06/08/2016 16:34:Isamar Lee RN) Tdap Vaccine: Yes (06/08/2016 16:34:Leandra Harper RN) Tdap Date: 04/25/2016 (06/08/2016 16:34:Leandra Harper RN) Hepatitis B Vaccine: Uncertain (06/08/2016 16:34:Isamar Lee RN) Overlock Sewing Machine Operator: [facility] (06/08/2016 16:34:Isamar Lee RN) Feeding Preference: Breast (06/08/2016 16:34:Isamar Lee RN) Benefit of Breast Feed Discussed: Yes (06/08/2016 16:34:Isamar Lee RN) Circumcision: N/A (06/08/2016 16:34:Isamar Lee RN) Classes Attended: No (06/08/2016 16:34:Isamar Lee RN) Tubal Ligation: No (06/08/2016 16:34:Isamar Lee RN) Tubal Authorization Signed: N/A (06/08/2016 16:34:Isamar Lee RN) Consent: N/A (06/08/2016 16:34:Isamar Lee RN) Consent Signed: N/A (06/08/2016 16:34:Isamar Lee RN) Pain Management Plans: Epidural (06/08/2016 16:34:Isamar Lee RN) Plans for Labor and Delivery: None (06/08/2016 16:34:Isamar Lee RN) Support Person: [facility] (06/08/2016 16:34:Isamar Lee RN) Support Person Relationship: (06/08/2016 16:34:Isamar Lee RN) Cultural/Spritual Practice: No (06/08/2016 16:34:Isamar Lee RN) Spir/Cult Dietary Needs: No (06/08/2016 16:34:Isamar Lee RN) LIVING SITUATION/DISCHARGE PLAN Living Arrangements: House (06/08/2016 16:34:Isamar Lee RN) Adequate Access to:: Electric; Heat; Refrigeration; Plumbing/Running water; Phone; Transportation (06/08/2016 16:34:Isamar Lee RN) WIC Program: [facility] (06/08/2016 16:34:Isamar Lee RN) Discharge Sales Order Coordinator Person: [facility] (06/08/2016 16:34:Isamar Lee RN) Person to Help after Discharge: [facility] (06/08/2016 16:34:Isamar Lee RN) Currently Using Commun Resources: [facility] (06/08/2016 16:34:Isamar Lee RN) Outside Agency/Production Associate: No (06/08/2016 16:34:Isamar Lee RN) Car Seat for Discharge: Yes (06/08/2016 16:34:Isamar Lee RN) Adoption Requested: No (06/08/2016 16:34:Isamar Lee RN) Pt Contact w/infant Post : N/A (06/08/2016 16:34:Isamar Lee RN) LABS Blood Type: AB Positive (06/08/2016 16:34:Isamar Lee RN) Antibody Screen: Negative (06/08/2016 16:34:Isamar Lee RN) Hemoglobin: 11.0 L (07/13/2016 08:20:QS system process) Hematocrit: 32.4 L (07/13/2016 08:20:QS system process) MCV: 89 (07/13/2016 08:20:QS system process) Group Beta Strep: Positive (06/08/2016 16:34:Isamar Lee RN) Gonorrhea: Negative (06/08/2016 16:34:Eneida Solorzano RN) Chlamydia: Negative (06/08/2016 16:34:Isamar Lee RN) RPR/VDRL: Nonreactive (06/08/2016 16:34:Eneida Solorzano RN) HIV Exposure Test: Negative (06/08/2016 16:34:Eneida Solorzano RN) HIV Results: negative (06/08/2016 16:34:Eneida Solorzano RN) Hepatitis B: Negative (06/08/2016 16:34:Eneida Solorzano RN) Rubella: Immune (06/08/2016 16:34:Isamar Lee RN) OB/PREVIOUS HISTORY Previous Procedures: Ultrasound (06/08/2016 16:34:Isamar Lee RN) Current Procedures: Ultrasound (06/08/2016 16:34:Isamar Lee RN) History of Previous : No (06/08/2016 16:34:Isamar Lee RN) History of Gestational Diabetes: Yes (06/08/2016 16:34:Isamar Lee RN) History of PIH: No (06/08/2016 16:34:Isamar Lee RN) History of Incompetent Cervix: No (06/08/2016 16:34:Isamar Lee RN) History of Placenta Previa/Abrup: No (06/08/2016 16:34:Isamar Lee RN) History of Macrosomia: No (06/08/2016 16:34:Isamar Lee RN) History of IUGR: No (06/08/2016 16:34:Isamar Lee RN) History of Hemorrhage: No (06/08/2016 16:34:Isamar Lee RN) History of Loss/Stillborn: No (06/08/2016 16:34:Isamar Lee RN) History of : No (06/08/2016 16:34:Isamar Lee RN) History of D (Rh) Sensitization: No (06/08/2016 16:34:Isamar Lee RN) History Recurrent Loss/Stillborn: No (06/08/2016 16:34:Isamar Lee RN) History Depression/PP Depression: No (06/08/2016 16:34:Isamar Lee RN) History of Uterine Anomaly/CHRISTINE: No (06/08/2016 16:34:Isamar Lee RN) History of Infertility: No (06/08/2016 16:34:Isamar Lee RN) History of ART Treatment: No (06/08/2016 16:34:Isamar Lee RN) History of CHRISTINE: No (06/08/2016 16:34:Isamar Lee RN) Comments Obstetrical History: G1- baby girl, 7 lb 8 oz G2- G3- current (06/08/2016 16:34:Isamar Lee RN) MEDICAL HISTORY Med Hx Diabetes: No (06/08/2016 16:34:Isamar Lee RN) Diabetes Type: Gestational Diabetes (06/08/2016 16:34:Isamar Lee RN) Med Hx Hypertension: No (06/08/2016 16:34:Isamar Lee RN) Med Hx Heart Disease: No (06/08/2016 16:34:Isamar Lee RN) Med Hx Autoimmune Disorder: No (06/08/2016 16:34:Isamar Lee RN) Med Hx Kidney Disease/UTI: No (06/08/2016 16:34:Isamar Lee RN) Med Hx Neurologic/Epilepsy: No (06/08/2016 16:34:Isamar Lee RN) Med Hx Psychiatric Disorders: No (06/08/2016 16:34:Isamar Lee RN) Med Hx Hepatitis/Liver Disease: No (06/08/2016 16:34:Isamar Lee RN) Med Hx Varicosities/Phlebitis: No (06/08/2016 16:34:Isamar Lee RN) Med Hx Thyroid Dysfunction: No (06/08/2016 16:34:Isamar Lee RN) Med Hx Trauma/Violence: No (06/08/2016 16:34:Isamar Lee RN) Med Hx Blood Transfusion: No (06/08/2016 16:34:Isamar Lee RN) Med Hx Pulmonary (Asthma,TB): No (06/08/2016 16:34:Isamar Lee RN) Med Hx Breast: No (06/08/2016 16:34:Isamar Lee RN) Med Hx WIRE THREADER Surgery: No (06/08/2016 16:34:Isamar Lee RN) Med Hx Hospitalization/Surgery: Yes (06/08/2016 16:34:Isamar Lee RN) Med Hx Anesthetic Complications: No (06/08/2016 16:34:Isamar Lee RN) Med Hx Abnormal Pap Smear: No (06/08/2016 16:34:Isamar Lee RN) Other Medical Diseases: No (06/08/2016 16:34:Isamar Lee RN) Med Hx Significant Family Hx: No (06/08/2016 16:34:Isamar Lee RN) Details of Med/Surg Hx: ACL repair 2010 (06/08/2016 16:34:Isamar Lee RN) INFECTIOUS HISTORY Inf Hx Gonorrhea: No (06/08/2016 16:34:Isamar Lee RN) Inf Hx Chlamydia: No (06/08/2016 16:34:Isamar Lee RN) Inf Hx Syphilis: No (06/08/2016 16:34:Isamar Lee RN) Inf Hx HIV/AIDS: No (06/08/2016 16:34:Isamar Lee RN) Inf Hx Human Papilloma Virus: No (06/08/2016 16:34:Isamar Lee RN) Inf Hx Pt/Partner Genital Herpes: No (06/08/2016 16:34:Isamar Lee RN) Inf Hx Tuberculosis/Exposure: No (06/08/2016 16:34:Isamar Lee RN) Inf Hx Hepatitis B,C: No (06/08/2016 16:34:Isamar Lee RN) Inf Hx Rash or Viral Illness: No (06/08/2016 16:34:Isamar Lee RN) GENETIC HISTORY Gen Hx Age >=35 at RACHELLE: No (06/08/2016 16:34:Isamar Lee RN) Gen Hx Thalassemia: No (06/08/2016 16:34:Isamar Lee RN) Gen Hx Congenital Heart Defect: No (06/08/2016 16:34:Isamar Lee RN) Gen Hx Neural Tube Defect: No (06/08/2016 16:34:Isamar Lee RN) Gen Hx Down's Syndrome: No (06/08/2016 16:34:Isamar Lee RN) Gen Hx Yony-Sachs: No (06/08/2016 16:34:Isamar Lee RN) Gen Hx Alva: No (06/08/2016 16:34:Isamar Lee RN) Gen Hx Familial Dysautonomia: No (06/08/2016 16:34:Isamar Lee RN) Gen Hx Sickle Cell Disease/Trait: No (06/08/2016 16:34:Isamar Lee RN) Gen Hx Hemophilia/Blood Disorder: No (06/08/2016 16:34:Isamar Lee RN) Gen Hx Muscular Dystrophy: No (06/08/2016 16:34:Isamar Lee RN) Gen Hx Cystic Fibrosis: No (06/08/2016 16:34:Isamar Lee RN) Gen Hx Huntingtons Chorea: No (06/08/2016 16:34:Isamar Lee RN) Gen Hx Mental Retardation/Autism: No (06/08/2016 16:34:Isamar Lee RN) Gen Hx Tested for Fragile X: No (06/08/2016 16:34:Isamar Lee RN) Gen Hx Other Inher/Chromosomal: No (06/08/2016 16:34:Isamar Lee RN) Gen Hx Maternal Metabolic DO: No (06/08/2016 16:34:Isamar Lee RN) Gen Hx Pt Father or FOB Defect: No (06/08/2016 16:34:Isamar Lee RN) Gen Hx Other Genetic History: No (06/08/2016 16:34:Isamar Lee RN) Gen Hx Drugs/Meds since LMP: No (06/08/2016 16:34:Isamar Lee RN)
--- NOTE | 2016-07-17 06:00 | L&D Current Admission ---
Current Admit Datetime Report Generated by CPN: 07/17/2016 06:00 ADMISSION INFORMATION Current Admit Date/Time: 07/11/2016 21:04 (07/11/2016 20:24:Isamar Lee RN) Reason for Admission: Induction of Labor (07/11/2016 20:24:Isamar Lee RN) Chief Complaint: Scheduled Induction of Labor (07/11/2016 20:24:Isamar Lee RN) Medications During : Vitamin (07/11/2016 20:24:Isamar Lee RN) EGA per Dates: 39.2 (07/11/2016 20:24:QS system process) Method of Arrival: Ambulatory (07/11/2016 20:24:Isamar Lee RN) Admitted From: Emergency Dept (07/11/2016 20:24:Isamar Lee RN) Reason for Induction: Other (07/11/2016 20:24:Dylan Pierce RN) Reason for Induction- Other: Gestational DM (07/11/2016 20:24:Dylan Pierce RN) Records Available: Yes (07/11/2016 20:24:Isamar Lee RN) General Admission Information: Reviewed; Updated; Confirmed (07/11/2016 20:24:Dylan Pierce RN) General Admission Reviewed By: Haritha Pierce RN (07/11/2016 20:24:Dylan Pierce RN) BELONGINGS/ADVANCED DIRECTIVES Valuables/Personal Effects: Purse/Wallet; Cell Phone; Jewelry (07/11/2016 20:24:Isamar Lee RN) Disposition of Belongings: Kept with Patient (07/11/2016 20:24:Isamar Lee RN) Advance Direct for Healthcare: No, and Wants No Information (07/11/2016 20:24:Isamar Lee RN) Durable Power of Kosher Inspector: No (07/11/2016 20:24:Isamar Lee RN) Living Will: No (07/11/2016 20:24:Isamar Lee RN) Organ Donor: Yes (07/11/2016 20:24:Isamar Lee RN) Pt Rights Information Given: Yes (07/11/2016 20:24:Isamar Lee RN) Pt Understands Pt Rights: Yes (07/11/2016 20:24:Isamar Lee RN) LEARNING ASSESSMENT Knowledge Level: Understands L_D Process (07/11/2016 20:24:Dylan Pierce RN) Barriers to Learning: None (07/11/2016 20:24:Dylan Pierce RN) Learning Readiness: Motivated (07/11/2016 20:24:Dylan Pierce RN) Learns Best By: 1 to 1 Instruction; Demonstration (07/11/2016 20:24:Dylan Pierce RN) Learning Needs: Labor and Delivery Process; Pain Management; Symptoms to Report; Treatment Plan (07/11/2016 20:24:Dylan Pierce RN) DOMESTIC VIOLANCE SCREENING Dom Viol Threatened/Hurt: No (07/11/2016 20:24:Isamar Lee RN) Hx of Abuse/Neglect past 2yrs: No (07/11/2016 20:24:Isamar Lee RN) Feel Unsafe Going Home: No (07/11/2016 20:24:Isamar Lee RN) Addt'l Observ Indicating Abuse: No (07/11/2016 20:24:Isamar Lee RN) Reason Unable to Complete Screen: N/A, Screen Completed (07/11/2016 20:24:Isamar Lee RN) Considered Personal Harm/Suicide: No (07/11/2016 20:24:Isamar Lee RN) NUTRITIONAL/FUNCTIONAL SCREENING Problem with Appetite >5 Days: No (07/11/2016 20:24:Isamar Lee RN) Chew/Swallow Difficulties: No (07/11/2016 20:24:Isamar Lee RN) Inappropriate Wt Gain/Loss: No (07/11/2016 20:24:Isamar Lee RN) Presence Skin Breakdown/Ulcer: No (07/11/2016 20:24:Isamar Lee RN) Special Diet: No (07/11/2016 20:24:Isamar Lee RN) Pt Requests Instrument And Control Technician Visit: No (07/11/2016 20:24:Isamar Lee RN) Hx of Any of the Following?: N/A (07/11/2016 20:24:Isamar Lee RN) New Diagnosis of: N/A (07/11/2016 20:24:Isamar Lee RN) Requires Assist w/Ambulation: No (07/11/2016 20:24:Isamar Lee RN) Uses Assist Device to Ambulate: No (07/11/2016 20:24:Isamar Lee RN) Pt Requires Help w/ADL's: No (07/11/2016 20:24:Isamar Lee RN)
== END 2016-07-14 13:46 | disposition home or self-care (01) | DRG 775 ==
LOC: LR 20:16 → 2S 07-12 23:31
PROVIDERS: ADMIT Obstetrics & Gynecology; ATTEND Obstetrics & Gynecology
PROC: 4A1HXCZ Monitoring of Products of Conception, Cardiac Rate, External Approach (ICD-10-PCS; 2016-07-11)
PROC: 10E0XZZ Delivery of Products of Conception, External Approach (ICD-10-PCS; principal; 2016-07-12)
PROC: 0HQ9XZZ Repair Perineum Skin, External Approach (ICD-10-PCS; 2016-07-12)
PROC: 3E0P7GC Introduction of Other Therapeutic Substance into Female Reproductive, Via Natural or Artificial Opening (ICD-10-PCS; 2016-07-12)
DX: O24.429 Gestational diabetes mellitus in childbirth, unspecified control (principal); O99.824 Streptococcus B carrier state complicating childbirth; O70.0 First degree perineal laceration during delivery; Z3A.39 39 weeks gestation of pregnancy; Z37.0 Single live birth
CPT/HCPCS: 36415; 80307; 81005; 82962; 85025; 85027; 86592; 86850; 86900; 86901; J2540; J2590; J3490